=== PATIENT | male | born 1970 | race Caucasian/White ===

== ENCOUNTER 2024-06-03 11:26 | Inpatient (IN) | payer BC, SELFPAY ==
[2024-06-01 17:00] VITALS: BP 143/96
--- NOTE | 2024-06-01 17:47 | ED.GENMED ---
History of Present Illness
General
Chief Complaint: Heart Rate Problem
Source: patient
Exam Limitations: none
Time Seen by Provider: 06/01/24 17:20
Nursing documentation reviewed up to this point in time: agreed with
History of Present Illness
History of Present Illness:
53-year-old male with a history of mitral valve prolapse followed by Dr. Chang who has a history of having episodes of palpitations usually felt as fast heart rate but only lasting several hours presents for symptoms of either fast or slow heart
rate over the last 3 days. It is very unusual for his symptoms to be going on this long. At times his Apple Watch has alerted him to a heart rate of 180 which he says he does not believe and it has been also as low as 40s. His last echo was about
a year ago and he is due for a new 1 coming up. His treatment plan is to avoid triggers for his palpitations is much as he can but he will ultimately require mitral valve replacement
Patient says usually his episodes are triggered either by a full meal, drinking alcohol, excess caffeine etc. but this time he cannot think of any triggers. He has not had any chest pain but has felt a little short of breath at times. He shortness
of breath does get a little bit worse with walking. He says he overall feels fatigued. He says he just does not feel himself. He has not had any leg edema, fever, chills, cough, vomiting, syncope, lightheadedness. There is no PE risk factors.
Patient did not reach out to his cover cutter prior to coming
Past History
Past History
ED Past Medical History: Other (mvp)
Social History
Tobacco: Non-smoker
Alcohol: Occasional
Drug: None
Personal:
Living: with family
Review of Systems
Review of Systems
Allergies reviewed?: Yes
All Other Systems: Not applicable
Phy Exam
Physical Exam
Physical Exam:
GENERAL: Alert , in no apparent distress
EYE: pupils equal and reactive
NECK: Supple
ENT: o/p clr, mmm.
CARDIAC: Tachycardic in the low 100s, it does trend down to the 90s, 2 out of 6 murmur in the left sixth intercostal space
LUNGS: Clear breath sounds bilaterally, no acute respiratory distress, no wheezes/rales/rhonchi, no rales
ABDOMEN: Soft, without focal tenderness, no r/g, no cvat, normal bowel sounds
NEUROLOGICAL: Alert and oriented, no focal neuro deficits
SKIN: Warm and dry, skin intact.
MUSCULOSKELETAL: No edema, well perfused. neg juan j's sign
PSYCH: Normal and appropriate interaction.
Course
Orders/Labs/Results
Orders:
Orders
06/01/24 16:56
EKG [Electrocardiogram (*1)] Urgent
Reason for Study: Palpitations
EKG- Treatment ONCE
06/01/24 17:42
CR Chest - 2 Views Urgent
Comment:
Reason For Exam: mvp, tachycardia, sob
06/01/24 17:55
Complete Blood Count/With Diff Urgent
Comprehensive Metabolic Panel Urgent
Magnesium Urgent
NT-proBNP Urgent
TSH Reflex To Free T4 Urgent
Troponin I Urgent
06/01/24 19:12
Furosemide [Lasix] 40 mg IV NOW STA
06/01/24 19:23
Admit/Transfer Patient As Directed
Co-Sign Provider:
Level of Care: Observation services
Assign to:: Telemetry
Physician / Group: Karie
Diagnosis: palpitation
Reason for Telemetry: Subacute Heart Failure
Date to Stop Telemetry: 06/03/24
Time to Stop Telemetry: 11:00
06/01/24 19:39
Code Status As Directed
Resuscitation Status: Full Code
06/03/24 11:00
DC Protocol for Telemetry ONCE
Abnormal Lab Results
06/01/24
17:55
MCH 31.4 H pg
(27.0-31.0)
MCHC 37.3 H g/dL
(33.0-37.0)
MPV 10.9 H fL
(7.4-10.4)
Absolute Neuts (auto) 7.6 H 10^3/uL
(1.4-6.5)
Absolute Monos (auto) 0.7 H 10^3/uL
(0.1-0.6)
Lymphocytes % 18.5 L %
(20.5-51.1)
Total Bilirubin 2.6 H mg/dl
(0.2-1.3)
06/01/24 17:55
06/01/24 17:55
Vital Signs
Initial and Last Documented VS:
Initial Vital Signs
Temp Pulse Resp BP Pulse Ox
97.5 F 106 18 143/96 100
06/01/24 17:00 06/01/24 17:00 06/01/24 17:00 06/01/24 17:00 06/01/24 17:00
Last Documented Vital Signs
Temp Pulse Resp BP Pulse Ox
97.5 F 86 18 143/96 100
06/01/24 17:00 06/01/24 19:23 06/01/24 17:00 06/01/24 17:00 06/01/24 17:00
MDM/Problems Addressed
MDM/Problems Addressed:
richard noe 53 y/o M MVP followed by ganga; palpitations, hr 110s-120s x 3 days, fatigue, exertional dyspnea;
pt had no significant findings for CHF on physical exam but bnp 3300; trop neg, ekg sinus tach, no cp, cxr indep reviewed and neg
daniel consulted, rec lasix 40 iv daily and echo
*Critical Care Note
Total Time (30-74mins, 75-104mins- exclusive of procedures): Not Applicable
ED Attending Note
-
Portions of this chart may have been created with voice recognition software.� Occasional wrong word or��sound alike� substitutions may have occurred due to the inherent limitations of voice recognition software.
Discharge Plan
Departure
Patient Disposition: Admit
Date of Disposition: 06/01/24
Time of Disposition: 19:11
Admit to: Telemetry
Presentation/result/management discussed w/ accepting MD/DO: Hospitalist
Condition: Fair
Covid-19: Not Applicable
Discharge Problem:
MVP (mitral valve prolapse), Tachycardia, CHF (congestive heart failure)
Prescriptions:
No Action
aspirin 81 mg Tablet,Delayed Release (Dr/Ec)
81 mg PO HS
Pepcid Complete 10-800-165 mg Tablet,Chewable
1 tab PO BID
Refresh Optive 0.5-0.9 % Drops
1 drp BOTH EYES BID
Referrals:
Ayde Vogt MD [Family Provider] -
Interventions
Interventions:
*Risk Screen - Suicide Last Done: 06/01/24 18:00
*General Assessment Last Done: 06/01/24 18:00
*Neglect/Abuse Screening Last Done: 06/01/24 18:00
ED- Cardiac Assessment Last Done: 06/01/24 18:00
ED- Pulmonary Assessment Last Done: 06/01/24 18:00
Discharge Date and Time
Print Language: INDIAN
[2024-06-01 18:01] LABS: % Basophils 0.7 % (0-2); % Eosinophils 0.6 % (0-6); % Immature Granulocytes 0.3 % (0-0.5); % Lymphocytes 18.5 % (20.5-51.1); % Monocytes 6.5 % (1.7-9.3); % Neutrophils 73.4 % (42.2-75.2); Absolute Basophils 0.1 10^3/uL (0-0.2); Absolute Eosinophils 0.1 10^3/uL (0-0.7); Absolute Lymphocytes 1.9 10^3/uL (1.2-3.4); Absolute Monocytes 0.7 10^3/uL (0.1-0.6); Absolute Neutrophils 7.6 10^3/uL (1.4-6.5); Hematocrit 41.6 % (39.0-52.0); Hemoglobin 15.5 g/dL (13.0-18.0); Mean Corp Hgb Conc. 37.3 g/dL (33.0-37.0); Mean Corpuscular Hgb 31.4 pg (27.0-31.0); Mean Corpuscular Volume 84.2 fL (80.0-94.0); Mean Platelet Volume 10.9 fL (7.4-10.4); Nucleated Red Blood Cells % 0 % (-); Platelet Count 245 10^3/uL (130-400); Red Blood Cell Count 4.94 10^6/uL (4.70-6.10); Red Cell Dist. Width 12.1 % (11.5-14.5); White Blood Cell Count 10.3 10^3/uL (4.8-10.8)
[2024-06-01 18:24] LABS: ALT (SGPT) 25 U/L (0-50); AST (SGOT) 31 U/L (17-59); Albumin 4.4 g/dl (3.5-5.0); Alkaline Phosphatase 56 U/L (38-126); Blood Urea Nitrogen 14 mg/dl (9-20); Calcium 9.5 mg/dl (8.4-10.2); Carbon Dioxide 25 mmol/L (22-30); Chloride 106 mmol/L (98-107); Glucose 89 mg/dl (70-99); Magnesium 2.2 mg/dl (1.6-2.3); Potassium 4.1 mmol/L (3.5-5.1); Sodium 138 mmol/L (135-145); Total Bilirubin 2.6 mg/dl (0.2-1.3); Total Protein 6.5 g/dl (6.3-8.2); eGFR > 60.00
[2024-06-01 18:26] LABS: Troponin I < 0.012 ng/ml
[2024-06-01 18:54] LABS: TSH Reflex To Free T4 1.43 uIU/ml (0.47-4.68)
[2024-06-01 19:02] LABS: NT-proBNP 3350 pg/ml
[2024-06-01] MEDS: LASIX 40 MG IV (19:23)
--- NOTE | 2024-06-01 19:42 | HPS.HSE ---
Family Physician
-
Family Physician: Ayde Vogt
Chief Complaint
-
53-year-old male with history of moderate to severe mitral regurgitation, presented to the hospital complaining of intermittent palpitations since without enticing or triggering factor, he has an Apple Watch and his heart rate ranging from
180-40 and even occasionally red A-fib according to the patient while he spoke to his cardiology did not think this is in A-fib.
Admits feeling tired and fatigue and occasional short of breath especially with palpitation on exertion, no dizziness or syncope, no chest pain or cough or congestion or any weakness or numbness in extremities no bleeding event or change in stool or
urine color, denies any other symptoms.
Denies any lower extremity edema gaining weight, currently asymptomatic.
In the ER BNP is more than 3300, and his TSH is 1.43. ER physician they spoke to the vending machine servicer Dr. Mckeon, recommended daily IV Lasix and echo in the morning.
Patient awake, alert and oriented x 3 hold appropriate conversation accompanied by the at the bedside.
History of Present Illness
Past medical history Reviewed:
Moderate to severe mitral regurgitation
Asthma
GERD
Social history: lives with independently, denies smoking and drinks 2-3 drinks couple nights in the weekend, denies any drug.
Family history: Reviewed and noncontributory
Medical History
Past Medical History
Past Medical History: Reports Other
Past Surgical History: Reports Other
Social History
Unable to obtain full social history at this time due to: Other
Family History
Family History: Other
Allergies / Home Medications
Allergies reflects when Allergies were last updated in [facility].
Home Medications with original date entered in [facility]
Allergy/Medication List:
Allergies
Allergy/AdvReac Type Severity Reaction Status Date / Time
epinephrine Allergy Tachycardia, Verified 09/07/21 10:24
lightheaded
lidocaine Allergy Residual Verified 09/07/21 10:24
numbess,
tingling
Home Medications
aspirin 81 mg tablet,delayed release 81 mg PO HS 06/01/24
carboxymethylcellulose 0.5 %-glycerin 0.9 % eye drops (Refresh Optive) 1 drp BOTH EYES BID 06/01/24
famotidine-Ca carb-mag hydrox 10 mg-800 mg-165 mg chewable tablet (Pepcid Complete) 1 tab PO BID 06/01/24
Review of Systems
-
A 12 point ROS was completed and negative except as noted: Yes
Physical Exam
Vital Signs
Vital Signs
Temp Pulse Resp BP Pulse Ox
97.5 F 86 18 143/96 100
06/01/24 17:00 06/01/24 19:23 06/01/24 17:00 06/01/24 17:00 06/01/24 17:00
Physical exam:
General: Awake, alert and oriented x3, not in distress and holds appropriate conversation.
HEENT: No active discharge, ecchymosis or bruising, moist lips, tongue and mucous membrane.
Eyes: No discharge or red conjunctiva, no nystagmus, pupils are reactive and equal
Neck:Supple, no JVD no bruit no goiter.
Respiratory: Normal AP contour and diameter, normal chest wall movement, normal respiratory effort, no respiratory distress,
Lungs: Good air entry bilaterally, no wheezing or rhonchi, no rales or crackles
Heart: S1, S2 regular, normal rate, no added sound.
Gastrointestinal: Positive bowel sounds, soft, nontender, no guarding or rigidity or organomegaly
Musculoskeletal: , no chest wall abnormality or tenderness. All joints and extremities have good range of motion, no muscle tenderness or any joint swelling or tenderness.
Extremities: No pitting edema, good peripheral pulses, good range of motion
Skin: Warm and dry, no ulceration, normal color.
Neurological: Awake, alert and oriented x3, no facial droop, speech clear and comprehensive, good muscle tone
Psychiatric: Normal mood, normal thought and judgment, normal affect,
Physical Exam
General: Other
Laboratory Results
-
06/01/24 17:55
06/01/24 17:55
Laboratory Results
Total Bilirubin 2.6 mg/dl (0.2-1.3) H 06/01/24 17:55
AST 31 U/L (17-59) 06/01/24 17:55
ALT 25 U/L (0-50) 06/01/24 17:55
Alkaline Phosphatase 56 U/L (38-126) 06/01/24 17:55
Troponin I < 0.012 ng/ml 06/01/24 17:55
Chest x-ray: No acute cardiopulmonary abnormality
EKG showed sinus tachycardia rate around 112, IA 134, QTc 466 otherwise no acute abnormalities.
Data Reviewed
-
Diagnostic Radiology: Image Personally Visualized and interpreted, Discussed with Physician, Discussed with Patient and Discussed with Family
Medical Tests (Nuc Med, Echo, EKG etc): Image Personally Visualized and interpreted, Discussed with Physician, Discussed with Nurse and Discussed with Family
Lab Data: Labs Reviewed by me, Discussed with Physician, Discussed with Patient and Discussed with Family
Old Records: Reviewed
Impression/Plan
-
IMPRESSION:
53-year-old male with history of moderate to severe mitral regurgitation, presented to the hospital complaining of the intermittent palpitations since with no relieving aggravating factor, currently symptomatic initially heart rate was in
sinus tachycardia now on the monitor was in the 90s and in sinus rhythm.
Palpitation, likely secondary to mitral valve prolapse while other causes may need to be considered
Concern for mitral valve induced CHF
Shortness of breath, with palpitation on exertion concern for CHF and
GERD
PLAN:
Cardiac monitoring
Cardiology been contacted and recommended IV Lasix daily and first dose was given get an echo tomorrow
TSH is normal
Monitor vital sign
Recheck lab and monitor electrolyte renal function
Potassium 4.1 and magnesium 2.2 continue to monitor
Follow troponin
Continue aspirin
He is on famotidine
All discussed with the patient and his and expressed understanding
Discussed with the ER physician and physician school office assistant
CODE STATUS full code
DVT prophylaxis is Lovenox
[2024-06-01 20:01] VITALS: BP 122/95
[2024-06-01 21:28] VITALS: BMI 27.3
[2024-06-01 21:33] VITALS: BP 122/80; BMI 27.3
[2024-06-01] MEDS: ASPIR LOW (ENTERIC COATED) 81 MG PO (22:04)
--- NOTE | 2024-06-01 22:25 | PTCARENOTE ---
Receive pt from ER. Pt alert oriented X3, calm and in no distress. The pt walked to his bed with no issues. Pt denies SOB, chest pain , or palpitations. Pt oriented to the room, call dumont within reach. Pt is on NSR on telemonitor. HR=96, RR=18,
OU=166/80, T=98.2, SpO2=98% on RA. HF pocket given to the pt. Pt advised to report any chest pain, or palpitations, or SOB. Will continue to monitor the pt.
[2024-06-01 23:16] LABS: Troponin I < 0.012 ng/ml
[2024-06-01 23:31] VITALS: BP 110/78
[2024-06-02 03:16] VITALS: BP 103/71
[2024-06-02 04:49] VITALS: BMI 27.2
[2024-06-02 05:14] LABS: Blood Urea Nitrogen 14 mg/dl (9-20); Calcium 9.4 mg/dl (8.4-10.2); Carbon Dioxide 28 mmol/L (22-30); Chloride 105 mmol/L (98-107); Estimated Creatinine Clearance 82 ml/min; Glucose 90 mg/dl (70-99); Magnesium 2.3 mg/dl (1.6-2.3); Potassium 4.1 mmol/L (3.5-5.1); Sodium 141 mmol/L (135-145); Troponin I < 0.012 ng/ml; eGFR > 60.00
[2024-06-02 07:20] VITALS: BP 105/77
[2024-06-02] MEDS: PEPCID 20 MG PO ×2 (08:16→20:48)
[2024-06-02] MEDS: LASIX 40 MG IV (08:16)
--- NOTE | 2024-06-02 08:28 | CON.CAR ---
Addendum entered and electronically signed by Garrett Leblanc DO 06/02/24 13:25:
I saw and examined the patient.
The Aboriginal Education Teacher's note was reviewed and I agree with the note.
Comment:
Plan:
Continue IV Lasix diuresis.
Check 2D echocardiogram to evaluate for change in mitral regurgitation. We also discussed GEORGINA to better evaluate his known moderate to severe mitral regurgitation.
Review of his Apple Watch shows evidence of tachycardia with ectopy including PACs. We discussed checking a monitor after discharge. Some of his ectopy may be secondary to his worsening heart failure.
Discussed that if his mitral regurgitation is worsened, that he may require structural treatment to his mitral valve. Follow up regarding his MR with Dr Chang as outpt as well.
Discussed with the patient and his at bedside.
HPI: Pt came to [facility] yesterday with SOB and palpitations and was admitted with acute HF. Patient says that this past night he noticed his HR was fast, he could feel his heart beating faster, but not necessarily irregularly and then he
noticed his Apple watch was reporting his HR in the 160s and then down in the 40s. He reports that when the Apple watch read 160s he could feel his heart racing and that when it read HR in the 40s he felt tired. He was also feeling SOB described as
HANNAH, but also SOB when laying down to sleep at night, but no PND. He denies LE edema or bloating. No weight gain or rings fitting tighter. He has no h/o HF and does not take a diuretic. He has a h/o MR with last GEORGINA being in 08/2021. His last TTE
was 05/25/23 and he is scheduled for another echo 08/2024. He has otherwise felt well. No chest pain. He had ongoing symptoms so he came to [facility] yesterday and his pro-BNP was 3350 and he was given Lasix 40 mg IV with increased urine output and he also
reports symptomatic improvement, he had no orthopnea last night and reports the best night of sleep in a week.
Original Note:
Consultation
Consultation Request
Date/Time Consultation Requested: 06/01/24 at 2123
Date/Time Consultation Performed: 06/02/24 at 0830
Requesting Provider: Dr. Tavera
Performing Provider: Dr. Leblanc
Reason for Consultation: SOB, palpitations, MR
Medical History
-
History of Present Illness:
Patient came to [facility] yesterday with SOB and palpitations and was admitted with acute HF. Patient says that this past night he noticed his HR was fast, he could feel his heart beating faster, but not necessarily irregularly and then he
noticed his Apple watch was reporting his HR in the 160s and then down in the 40s. He reports that when the Apple watch read 160s he could feel his heart racing and that when it read HR in the 40s he felt tired. He was also feeling SOB described as
HANNAH, but also SOB when laying down to sleep at night, but no PND. He denies LE edema or bloating. No weight gain or rings fitting tighter. He has no h/o HF and does not take a diuretic. He has a h/o MR with last GEORGINA being in 08/2021. His last TTE
was 05/25/23 and he is scheduled for another echo 08/2024. He has otherwise felt well. No chest pain. He had ongoing symptoms so he came to [facility] yesterday and his pro-BNP was 3350 and he was given Lasix 40 mg IV with increased urine output and he also
reports symptomatic improvement, he had no orthopnea last night and reports the best night of sleep in a week.
PMH:
Moderate to severe MR with bileaflet mitral valve prolapse by echo 05/25/23
Past Medical History
Past Medical History: Other (in HPI)
Past Surgical History: Cholecystectomy, Orthopedic and Tonsilectomy
Social History
Tobacco: Former Smoker
Alcohol: Occasional (1-2 drinks two to three times a week)
Drug: None
Personal:
Living: With Family
Family History
Family History: Cancer
Allergies / Home Medications
Allergy/AdvReac Type Severity Reaction Status Date / Time
epinephrine Allergy Tachycardia, Verified 09/07/21 10:24
lightheaded
lidocaine Allergy Residual Verified 09/07/21 10:24
numbess,
tingling
�Medication �Instructions �Recorded �Confirmed �Type
aspirin 81 mg tablet,delayed 81 mg PO HS 06/01/24 06/01/24 History
release
carboxymethylcellulose 0.5 1 drp BOTH EYES BID 06/01/24 06/01/24 History
%-glycerin 0.9 % eye drops
(Refresh Optive)
famotidine-Ca carb-mag hydrox 10 1 tab PO BID 06/01/24 06/01/24 History
mg-800 mg-165 mg chewable tablet
(Pepcid Complete)
Review of Systems
-
History Source: Patient
All other systems: Negative unless noted
Physical Exam
Vital Signs
Temp Pulse Resp BP Pulse Ox
98.2 F 84 18 105/77 97
06/02/24 07:20 06/02/24 07:20 06/02/24 07:20 06/02/24 07:20 06/02/24 07:20
GEN: NAD, AAOx3
HEENT: EOMI, MMM, wearing glasses
LUNGS: CTA B/L without wheeze or rales
CV: Reg, S1/S2, 2/6 syst USB
ABD: soft, BS+, NT, ND
EXT: No clubbing, cyanosis, lesions or edema B/L
NEURO: Gross non-focal
SKIN: Warm, dry and pink. No rash
Lab Results
06/01/24 17:55
06/02/24 04:31
Troponin I < 0.012 ng/ml 06/02/24 04:31
Lqo-Q-Wckxxafkcsw Pept 3350 pg/ml 06/01/24 17:55
Impression / Plan
-
PCP: Dr. Vogt
Cardiology: Dr. Chang
Impression:
Acute HFpEF
Moderate to severe MR with bileaflet mitral valve prolapse by echo 05/25/23
Palpitations
PACs and sinus tachycardia
GEORGINA 09/07/21: Hyperdynamic LV systolic function EF 65 to 70%, normal regional wall motion, mildly dilated LA, mildly thickened mitral valve leaflets, prolapse of the anterior and posterior mitral valve leaflets present, moderate to severe MR,
significant prolapse of P2, P3 and A2 with mild pulmonary vein flow reversal, E wave velocity 78 cm/S, PISA ERO 0.3 cm/sq with regurgitant volume 35 mL
Echo 10/04/22: EF 50-55%, , mild conc LVH, prolapse of the posterior mitral leaflet was present, mod to sev MR, no MS, compared to the previous GEORIGNA Aug 2021, there is no significant change.
Echo 05/25/23: EF 65%, normal RV size and function, bileaflet mitral valve prolapse, moderate to severe MR, vena contracta 0.6 cm, PISA calculated ERO 0.2 cm with regurgitant volume 19 mL, peak E wave velocity 90 cm/sq, there was systolic pulmonary
vein flow reversal, no MS, trace aortic regurgitation, trace TR with PAP 20-25 mmHg
Echo 06/02/24: Study pending
Plan:
-Patient came to [facility] yesterday with SOB and palpitations and was admitted with acute HF. Patient says that this past night he noticed his HR was fast, he could feel his heart beating faster, but not necessarily irregularly and then he
noticed his Apple watch was reporting his HR in the 160s and then down in the 40s. He reports that when the Apple watch read 160s he could feel his heart racing and that when it read HR in the 40s he felt tired. He was also feeling SOB described as
HANNAH, but also SOB when laying down to sleep at night, but no PND. He denies LE edema or bloating. No weight gain or rings fitting tighter. He has no h/o HF and does not take a diuretic. He has a h/o MR with last GEORGINA being in 08/2021. His last TTE
was 05/25/23 and he is scheduled for another echo 08/2024. He has otherwise felt well. No chest pain. He had ongoing symptoms so he came [facility] and his pro-BNP was 3350 and he was given Lasix 40 mg IV with increased urine output and he also
reports symptomatic improvement, he had no orthopnea last night and reports the best night of sleep in a week.
-Weight is only down 1 lb overnight, but patient reports symptomatic improvement with initial Lasix 40 mg IV daily diuresis. Patient was not taking a diuretic prior to admission.
-Check TTE and pending results could consider an inpatient GEORGINA to re-evaluate MR
-Patient with h/o MR and MVP. Most recent GEORGINA and TTE outlined above.
-EF previously preserved
-Labs reviewed by me and potassium 4.1 with magnesium 2.3.
-Symptomatic palpitations have improved with diuresis. Tele and ECG reviewed by me show sinus tachycardia/SR with PACs. Also given opportunity to review patient's rhythm strips saved on his iphone from his [employer] watch and these look like sinus
tachycardia with PACs.
-Troponin undetectable. He was already taking an aspirin 81 mg daily prior to admission
[2024-06-02 10:52] VITALS: BP 118/81
--- NOTE | 2024-06-02 12:31 | W.PN.HOSP.TC ---
Today's Communication/Plan
-
ECHO
IV lasix
cards recs
monitor on tele
Assessment / Plan
Assessment / Plan
53-year-old male with history of moderate to severe mitral regurgitation, presented to the hospital complaining of the intermittent palpitations since with no relieving aggravating factor, currently symptomatic initially heart rate was in
sinus tachycardia now on the monitor was in the 90s and in sinus rhythm.
Palpitation, likely secondary to mitral valve prolapse
Acute HFpEF
Shortness of breath, with palpitation on exertion concern for CHF
Cardiac monitoring-no severe tachycardia noted
40mg IV lasix
ECHO pending
TSH is normal
Monitor vital sign
trend cr.
Follow troponin-undetectable
GDMT pending ECHO
cards recs
Continue aspirin
All discussed with the patient and his at bedside
CODE STATUS full code
DVT prophylaxis is Lovenox
Anticipated Discharge: > 48 hours
Subjective/Interval History
-
Date of Service: June 02, 2024
Denies any further palpitations
No events noted on telemetry
passing increasing amount of urine
Objective Data
-
Labs:
Laboratory Results
06/02/24
04:31
Sodium 141
Potassium 4.1
Chloride 105
Carbon Dioxide 28
BUN 14
Creatinine 1.1
Glucose 90
Calcium 9.4
Vital Signs:
Vital Signs
Temp Pulse Resp BP Pulse Ox
98.8 F 93 18 118/81 95
06/02/24 10:52 06/02/24 10:52 06/02/24 10:52 06/02/24 10:52 06/02/24 10:52
I&O
06/01/24 06/02/24 06/03/24
06:59 06:59 06:59
Intake Total 480 / 480
Output Total 800 / 800
Balance -320 / -320
[2024-06-02 15:36] VITALS: BP 127/79
[2024-06-02] MEDS: LOVENOX 40 MG SC (17:22)
[2024-06-02 19:20] VITALS: BP 110/79
[2024-06-02] MEDS: ASPIR LOW (ENTERIC COATED) 81 MG PO (20:48)
[2024-06-02 23:08] VITALS: BP 107/74
[2024-06-03 03:06] VITALS: BMI 27.3
[2024-06-03 03:07] VITALS: BP 106/76
[2024-06-03 05:42] LABS: Blood Urea Nitrogen 16 mg/dl (9-20); Calcium 9.5 mg/dl (8.4-10.2); Carbon Dioxide 26 mmol/L (22-30); Chloride 103 mmol/L (98-107); Estimated Creatinine Clearance 82 ml/min; Glucose 87 mg/dl (70-99); Potassium 4.2 mmol/L (3.5-5.1); Sodium 139 mmol/L (135-145); eGFR > 60.00
[2024-06-03 07:15] VITALS: BP 104/73
[2024-06-03] MEDS: LASIX 40 MG IV (09:21)
[2024-06-03] MEDS: PEPCID 20 MG PO (09:21)
[2024-06-03 09:27] VITALS: BMI 27.1
--- NOTE | 2024-06-03 11:26 | W.PN.HOSP.TC ---
Today's Communication/Plan
-
Plan for GEORGINA
IV Lasix
Cardiology recs
Assessment / Plan
Assessment / Plan
53-year-old male with history of moderate to severe mitral regurgitation, presented to the hospital complaining of the intermittent palpitations since with no relieving aggravating factor, currently symptomatic initially heart rate was in
sinus tachycardia now on the monitor was in the 90s and in sinus rhythm.
Palpitation, likely secondary to mitral valve prolapse
Acute HFpEF
Shortness of breath, with palpitation on exertion concern for CHF
Cardiac monitoring-no severe tachycardia noted
40mg IV lasix
ECHO with normal left ventricular size. EF of 60 to 65%. Normal diastolic function. Mild leaflet mitral valve prolapse. Thickened mitral valve leaflet. Moderate to severe mitral regurgitation. No mitral stenosis. Compared to echo 06/09 no
significant change.
TSH is normal
Monitor vital sign
trend cr.
Follow troponin-undetectable
Plan for GEORGINA today.
cards recs
Continue aspirin
CODE STATUS full code
DVT prophylaxis is Lovenox
Anticipated Discharge: Within 24 hours
Subjective/Interval History
-
Date of Service: June 03, 2024
States feeling tired
Objective Data
-
Labs:
Laboratory Results
06/03/24
04:25
Sodium 139
Potassium 4.2
Chloride 103
Carbon Dioxide 26
BUN 16
Creatinine 1.1
Glucose 87
Calcium 9.5
Vital Signs:
Vital Signs
Temp Pulse Resp BP Pulse Ox
97.3 F 86 16 104/73 97
06/03/24 07:15 06/03/24 07:15 06/03/24 07:15 06/03/24 07:15 06/03/24 08:00
I&O
06/02/24 06/03/24 06/04/24
06:59 06:59 06:59
Intake Total 480 / 480 1560 / 1560
Output Total 800 / 800 2520 / 2520
Balance -320 / -320 -960 / -960
Physical Exam
-
General: Well Developed and No Apparent Distress
HEENT: Normocephalic, Atraumatic and Moist Mucous Membranes
Respiratory: Clear to Auscultation
Cardiac: Regular Rhythm, S1/S2 and Murmur; Negative Rub or Gallop
GI: Soft, Nontender, Nondistended and Normal Bowel Sounds; Negative Organomegaly
Rectal: Deferred by Provider
Musculoskeletal: No Clubbing, No Cyanosis and No Edema
Skin: Negative Rash
Neuro: Awake, AO x 3, No Motor Deficits and Nonfocal/Grossly Intact
Psych: Calm
--- NOTE | 2024-06-03 11:51 | W.PN.UPDATE ---
Update Note
Progress Note Update
I met with Mr. Barrow with his spouse at the bedside. We discussed his GEORGINA findings as well as his symptoms. Will organize an office consultation for June 18 at 10:30am to discuss [facility] [employer] in more detail.
[2024-06-03 12:04] VITALS: BP 104/75
--- NOTE | 2024-06-03 12:04 | W.PN.CARDCBS ---
Today's Communication / Plan
-
GEORGINA this morning with likely severe MR
Appreciate CT surgery consult
Okay to transition to p.o. Lasix, would discharge on 20 mg daily
We will arrange outpatient cardiology follow-up
Impression / Plan
-
PCP: Dr. Vogt
Cardiology: Dr. Chang
Impression:
Acute HFpEF
Moderate to severe MR with bileaflet mitral valve prolapse by echo 05/25/23
Palpitations
PACs and sinus tachycardia
GEORGINA 09/07/21: Hyperdynamic LV systolic function EF 65 to 70%, normal regional wall motion, mildly dilated LA, mildly thickened mitral valve leaflets, prolapse of the anterior and posterior mitral valve leaflets present, moderate to severe MR,
significant prolapse of P2, P3 and A2 with mild pulmonary vein flow reversal, E wave velocity 78 cm/S, PISA ERO 0.3 cm/sq with regurgitant volume 35 mL
Echo 10/04/22: EF 50-55%, , mild conc LVH, prolapse of the posterior mitral leaflet was present, mod to sev MR, no MS, compared to the previous GEORGINA Aug 2021, there is no significant change.
Echo 05/25/23: EF 65%, normal RV size and function, bileaflet mitral valve prolapse, moderate to severe MR, vena contracta 0.6 cm, PISA calculated ERO 0.2 cm with regurgitant volume 19 mL, peak E wave velocity 90 cm/sq, there was systolic pulmonary
vein flow reversal, no MS, trace aortic regurgitation, trace TR with PAP 20-25 mmHg
Patient came to [facility] with SOB and palpitations and was admitted with acute HF. Patient says that this past night he noticed his HR was fast, he could feel his heart beating faster, but not necessarily irregularly and then he noticed his
Apple watch was reporting his HR in the 160s and then down in the 40s. He reports that when the Apple watch read 160s he could feel his heart racing and that when it read HR in the 40s he felt tired. He was also feeling SOB described as HANNAH, but
also SOB when laying down to sleep at night, but no PND. He denies LE edema or bloating. No weight gain or rings fitting tighter. He has no h/o HF and does not take a diuretic. He has a h/o MR with last GEORGINA being in 08/2021. His last TTE was 05/25/23
and he is scheduled for another echo 08/2024. He has otherwise felt well. No chest pain. He had ongoing symptoms so he came to [facility] yesterday and his pro-BNP was 3350 and he was given Lasix 40 mg IV with increased urine output and he also reports
symptomatic improvement
Plan:
Received IV diuresis for acute heart failure, renal function has remained stable, not overtly volume overloaded on exam
Ok to transition to PO lasix, would discharge on 20mg lasix daily
GEORGINA this AM with likely severe MR
CT surgery follow up arranged to discuss MV repair
Tele reviewed which shows sinus rhythm with PACs which is the likely cause of his palpitations
We will arrange outpatient follow up
Progress Note - Hydro Technician
Subjective
Date of Service: June 03, 2024
NAOE. Underwent GEORGINA this AM to reassess MR.
Objective
Labs:
06/01/24 17:55
06/03/24 04:25
Labs
Hgb 15.5 g/dL (13.0-18.0) 06/01/24 17:55
Hct 41.6 % (39.0-52.0) 06/01/24 17:55
Plt Count 245 10^3/uL (130-400) 06/01/24 17:55
Sodium 139 mmol/L (135-145) 06/03/24 04:25
Potassium 4.2 mmol/L (3.5-5.1) 06/03/24 04:25
BUN 16 mg/dl (9-20) 06/03/24 04:25
Creatinine 1.1 mg/dL (0.7-1.3) 06/03/24 04:25
Glucose 87 mg/dl (70-99) 06/03/24 04:25
Troponins
06/01/24 06/01/24 06/02/24
17:55 22:47 04:31
Troponin I < 0.012 < 0.012 < 0.012
Vital Signs and I&O:
Vital Signs
Temp Pulse Resp BP Pulse Ox
97.3 F 86 16 104/73 97
06/03/24 07:15 06/03/24 07:15 06/03/24 07:15 06/03/24 07:15 06/03/24 08:00
Vital Signs
Temp Pulse Resp BP Pulse Ox
97.3 F 86 16 104/73 97
06/03/24 07:15 06/03/24 07:15 06/03/24 07:15 06/03/24 07:15 06/03/24 08:00
Intake & Output
06/01/24 06/02/24 06/03/24 06/04/24
06:59 06:59 06:59 06:59
Intake Total 480 / 480 1560 / 1560
Output Total 800 / 800 2520 / 2520
Balance -320 / -320 -960 / -960
Physical Exam
Physical Exam
Gen: NAD, AAOx3
HEENT: NC/AT, sclera anicteric
Neck: No JVD
CV: RRR, NL s1/s2
Lungs: CTAB
Abd: S/ND
Ext: No LE edema
Skin: Warm, dry
Neuro: Non-focal
--- NOTE | 2024-06-03 13:32 | CM ---
Alert awake oriented patient who lives with his S[place] who lives in a 2 story home with 2 step to enter and 14 steps to bed and bathroom. He is independent in driving and in all activities of daily living.He was offered VN he declined
need.Pt was informed he was changed form observation to inpatient status this am.His will drive him home.
No VN hx / No SNF history
Pharmacy [facility]
PCP DR Ayde Vogt
PLAN Home Declined VN
[2024-06-03 13:50] VITALS: BP 111/73
--- NOTE | 2024-06-03 15:47 | PTCARENOTE ---
Pts called post discharge stating pt has a large bruise from lovenox shot given last night. and patient concerned. Pt said it is not painful but slightly hard to touch, explained to patient that we do see bruising/bleeding from lovenox
injections, Instructed pt to keep an eye on site and if worsening appearance, or pain to give PCP office a call, pt will be following up with them in one week.
--- NOTE | 2024-06-04 13:59 | W.HF.CON ---
Heart Failure
- LV Function
Left ventricular function study result: LV Ejection fraction >40%
Ejection Fraction Percentage: 55-60
- ARNI
Patient already on ARNI: No
Heart Failure ARNI Not Indicated: LV Ejection Fraction >/= 40%
- ACEI/ARB
Patient already on ACEI/ARB: No
Heart Failure ACEI/ARB Not Indicated: LV Ejection Fraction > 40%
- Beta Huang
Patient already on Evidence Based Beta Huang: No
Heart Failure Evidence Based Beta Huang Not Indicated: LV Ejection Fraction > 40%
- Mineralocorticord Receptor Antagonist
Patient already on MRA: No
Heart Failure MRA Not Indicated: LV Ejection Fraction > 40%
- SGLT-2 Inhibitor
Patient already on SGLT-2 Inhibitor: No
Heart Failure SGLT-2 Inhibitor Not Indicated: LV Ejection Fraction >40%
- NYHA CHF Classification
NYHA CHF Classification Level: Class III - Symptoms w/ min exertion, interferes w/ nml daily activity (severe MR)
- ACC/AHA Stage
ACC/AHA Stage: Stage C: Symptomatic Heart Failure
== END 2024-06-03 14:40 | disposition home or self-care (01) | DRG 306 ==
LOC: 4 EAST ACU 11:26
PROVIDERS: Internal Medicine Cardiovascular Disease; Physician Assistant; ADMITTING PHYSICIAN Internal Medicine; ATTENDING PHYSICIAN Hospitalist; EMERGENCY PHYSICIAN Student in an Organized Health Care Education/Training Program; FAMILY PHYSICIAN Internal Medicine; OTHER PHYSICIAN Nuclear Medicine Nuclear Cardiology
PROC: B24BZZ4 Ultrasonography of Heart with Aorta, Transesophageal (ICD-10-PCS; 2024-06-03)
DX: I34.1 Nonrheumatic mitral (valve) prolapse (principal); I50.31 Acute diastolic (congestive) heart failure; I34.0 Nonrheumatic mitral (valve) insufficiency; J45.909 Unspecified asthma, uncomplicated; K21.9 Gastro-esophageal reflux disease without esophagitis; I49.1 Atrial premature depolarization; Z88.8 Allergy status to other drugs, medicaments and biological substances; Z88.4 Allergy status to anesthetic agent; Z79.82 Long term (current) use of aspirin; Z87.891 Personal history of nicotine dependence
CPT/HCPCS: 71046; 80048; 80053; 83735; 83880; 84443; 84484; 85025; 93005; 93306; 93312; 93320; 93325; 96374; 99285

== ENCOUNTER → 2024-06-13 08:58 | Outpatient (REF) | payer BC, SELFPAY ==
[2024-06-13 10:03] LABS: Blood Urea Nitrogen 20 mg/dl (9-20); Carbon Dioxide 26 mmol/L (22-30); Chloride 104 mmol/L (98-107); Glucose 92 mg/dl (70-99); Potassium 4.6 mmol/L (3.5-5.1); Sodium 139 mmol/L (135-145); eGFR > 60.00
== END ==
LOC: REG 08:58
PROVIDERS: ATTENDING PHYSICIAN Nurse Practitioner; FAMILY PHYSICIAN Internal Medicine
DX: R00.2 Palpitations (principal)
CPT/HCPCS: 36415; 80048

== ENCOUNTER 2024-06-27 07:27 | Day surgery (SDC) | payer BC, SELFPAY ==
[2024-06-27] VITALS (13 sets, daily range): BP systolic 92–117; BP diastolic 65–85; BMI 26.4
[2024-06-27] MEDS: NSS 251 ML IV (08:27)
[2024-06-27] MEDS: LOW STRENGTH ASPIRIN 81 MG PO (08:31)
--- NOTE | 2024-06-27 10:31 | ITS.CL.CATH ---
[facility] - Catheterization
Cardiac Catheterization
Procedure Report:
RIGHT AND LEFT HEART STUDY
Date of Procedure: June 27, 2024
Referring: Dr. Valente Chang
PROCEDURES:
1. Right heart catheterization
2. Coronary angiography
INDICATION: Severe mitral regurgitation
ACCESS: Right radial artery and right brachial vein
HEMODYNAMICS : mmHg
RA (m) : 4
RV (s/d) : 22/1
PA (s/d, m) : 23/9, 15
PCWP (m) : 10
AO (s/d, m) : 91/60, 76
Estimated Kateryna Cardiac Output: 5.6 L / min and Cardiac Index: 2.8 L/ min / m-2
CORONARY FINDINGS :
Dominance: Right
LEFT MAIN: Normal
LEFT ANTERIOR DESCENDING: The LAD is a large-caliber vessel originating normally from the left main and running in the anterior interventricular groove. The LAD is widely patent and supplies a single sizable diagonal branch.
CIRCUMFLEX: The circumflex is a large-caliber nondominant vessel giving rise to a small OM1 and terminating in a large OM 2.
RIGHT CORONARY ARTERY: The RCA is a dominant vessel that is widely patent
VENTRICULOGRAPHY: Not done
RADIATION SUMMARY: Fluoro Time (min): 5.2, Dose (mGy): 227, DAP (Gy.cm2) : 20.3
CONCLUSIONS
1. Nonobstructive coronary disease
2. Compensated right ventricular pressure
RECOMMENDATIONS
1. Follow-up with Dr. Forrest as scheduled for mitral valve repair
Copy to: Dr. Valente Chang, Dr. Beto Forrest
== END 2024-06-27 13:30 | disposition home or self-care (01) ==
LOC: CATH 07:27
PROVIDERS: ATTENDING PHYSICIAN Internal Medicine Interventional Cardiology; FAMILY PHYSICIAN Internal Medicine
DX: I25.10 Atherosclerotic heart disease of native coronary artery without angina pectoris (principal); I34.0 Nonrheumatic mitral (valve) insufficiency; K21.9 Gastro-esophageal reflux disease without esophagitis; Z79.82 Long term (current) use of aspirin
CPT/HCPCS: 93456; C1769; C1894; Q9967

== ENCOUNTER → 2024-07-01 08:07 | Outpatient (REF) | payer BC, SELFPAY | LOC: RAD 08:07 | PROVIDERS: ATTENDING PHYSICIAN Thoracic Surgery (Cardiothoracic Vascular Surgery); FAMILY PHYSICIAN Internal Medicine | DX: Z01.818 Encounter for other preprocedural examination (principal); I34.1 Nonrheumatic mitral (valve) prolapse | CPT/HCPCS: 71275; 74174; Q9967 ==

== ENCOUNTER 2024-07-15 04:59 | Inpatient (IN) | payer BC, SELFPAY ==
[2024-06-23 08:50] VITALS: BMI 26.8
[2024-06-23 09:33] LABS: % Eosinophils 1.3 % (0-6); % Immature Granulocytes 0.2 % (0-0.5); % Lymphocytes 20.3 % (20.5-51.1); % Monocytes 6.1 % (1.7-9.3); % Neutrophils 71.1 % (42.2-75.2); Absolute Basophils 0.1 10^3/uL (0-0.2); Absolute Eosinophils 0.1 10^3/uL (0-0.7); Absolute Lymphocytes 1.7 10^3/uL (1.2-3.4); Absolute Monocytes 0.5 10^3/uL (0.1-0.6); Absolute Neutrophils 5.8 10^3/uL (1.4-6.5); Hematocrit 45.8 % (39.0-52.0); Hemoglobin 16.7 g/dL (13.0-18.0); Mean Corp Hgb Conc. 36.5 g/dL (33.0-37.0); Mean Corpuscular Hgb 31.6 pg (27.0-31.0); Mean Corpuscular Volume 86.7 fL (80.0-94.0); Mean Platelet Volume 11.1 fL (7.4-10.4); Nucleated Red Blood Cells % 0 % (-); Platelet Count 271 10^3/uL (130-400); Red Blood Cell Count 5.28 10^6/uL (4.70-6.10); White Blood Cell Count 8.2 10^3/uL (4.8-10.8)
[2024-06-23 10:05] LABS: Urine Albumin Negative (Neg - Trace); Urine Bilirubin Negative (Negative); Urine Character Clear (Clear); Urine Color Yellow; Urine Glucose Negative (Negative); Urine Ketone Negative (Negative); Urine Leukocyte Negative (Negative); Urine Nitrite Negative (Negative); Urine Occult Blood Negative (Negative); Urine Urobilinogen Negative (Neg - 1+)
--- NOTE | 2024-06-23 10:19 | CM ---
Chart reviewed. Met with the patient in PAT. Patient is independent of ADLS, working, lives with his in a 2 STH, 2 ROSI in the front and 1 ROSI through the garage, 0 DME. Reviewed preoperative and postoperative instructions and restrictions,
along with showering guidelines. Gave patient 2 soaps. Patient is agreeable to a home visit by CT Transitional RN. Plan is for the patient to return home with CT Transitional RN.
[2024-06-23 10:35] LABS: INR 1.03; PT 13.3 Sec (11.4-14.6)
[2024-06-23 10:36] LABS: APTT 31.7 Sec (23.4-35.0)
[2024-06-23 10:56] LABS: Glycohemoglobin (HgbA1c) 4.5 % (4.0-5.6)
[2024-06-23 11:43] LABS: ALT (SGPT) 26 U/L (0-50); AST (SGOT) 27 U/L (17-59); Albumin 5.1 g/dl (3.5-5.0); Alkaline Phosphatase 64 U/L (38-126); Blood Urea Nitrogen 18 mg/dl (9-20); Calcium 10.2 mg/dl (8.4-10.2); Carbon Dioxide 26 mmol/L (22-30); Chloride 104 mmol/L (98-107); Direct Bilirubin 0.4 mg/dl (0.0-0.4); Estimated Creatinine Clearance 82 ml/min; Glucose 83 mg/dl (70-99); Potassium 4.5 mmol/L (3.5-5.1); Sodium 140 mmol/L (135-145); Total Bilirubin 3.2 mg/dl (0.2-1.3); Total Protein 7.4 g/dl (6.3-8.2); eGFR > 60.00
[2024-07-15 05:17] VITALS: BMI 25.7
[2024-07-15 05:30] VITALS: BP 137/87
[2024-07-15] MEDS: PROTONIX 40 MG PO (05:32)
[2024-07-15] MEDS: BACTROBAN 2% OINTMENT 1 APPLIC NASAL ×2 (05:33→21:02)
[2024-07-15] MEDS: MAGNESIUM OXIDE 500 MG PO (05:33)
[2024-07-15] MEDS: LOPRESSOR 25 MG PO (05:33)
--- NOTE | 2024-07-15 06:50 | PTCARENOTE ---
Patient prepped for SDA of MVR. Confirmed NPO PMN. Confirmed 2xCHG showers. Clipped and chg wipes applied. Preop meds administered. Patient transported to [facility] at approx 0635
[2024-07-15 07:31] LABS: ACT+ - POC 96 Seconds (82-134)
[2024-07-15 08:09] LABS: Urine Albumin Negative (Neg - Trace); Urine Bilirubin Negative (Negative); Urine Character Clear (Clear); Urine Color Yellow; Urine Glucose Negative (Negative); Urine Ketone 1+ (Negative); Urine Leukocyte Negative (Negative); Urine Nitrite Negative (Negative); Urine Occult Blood Negative (Negative); Urine Specific Gravity 1.015 (<1.030); Urine Urobilinogen Negative (Neg - 1+)
[2024-07-15 08:50] LABS: ACT+ - POC 723 Seconds (82-134)
[2024-07-15 08:53] LABS: B.E. - POC -2.3 mmol/L; Glucose - POC 100 mg/dl (65-99); HCO3 - POC 22 mmol/L (21-29); Hematocrit - POC 36 % PCV (42-52); Hemodilution- POC No; Hemoglobin Calculated - POC 12.2; O2 Saturation %Calculated-POC 99.9 5 (92-96); PCO2 - POC 35 mmHg (35-45); PO2 - POC 255 mmHg (80-100); POC Comment BASELINE; Potassium - POC 3.5 mmol/L (3.6-5.0); Sodium - POC 142 mmol/L (135-145); pH - POC 7.41 (7.35-7.45)
[2024-07-15 09:20] LABS: B.E. - POC 1.9 mmol/L; Glucose - POC 93 mg/dl (65-99); HCO3 - POC 25 mmol/L (21-29); Hematocrit - POC 30 % PCV (42-52); Hemodilution- POC Yes; Hemoglobin Calculated - POC 10.3; Ionized Calcium - POC 0.97 mmol/L (1.12-1.27); PCO2 - POC 35 mmHg (35-45); PO2 - POC 564 mmHg (80-100); POC Comment CPB; Potassium - POC 3.9 mmol/L (3.6-5.0); Sodium - POC 139 mmol/L (135-145); pH - POC 7.47 (7.35-7.45)
[2024-07-15 09:33] LABS: ACT+ - POC 723 Seconds (82-134)
[2024-07-15 09:39] LABS: B.E. - POC 0.6 mmol/L; Glucose - POC 140 mg/dl (65-99); HCO3 - POC 27 mmol/L (21-29); Hematocrit - POC 31 % PCV (42-52); Hemodilution- POC Yes; Hemoglobin Calculated - POC 10.5; Ionized Calcium - POC 1.09 mmol/L (1.12-1.27); O2 Saturation %Calculated-POC 99.9 5 (92-96); PCO2 - POC 47 mmHg (35-45); PO2 - POC 337 mmHg (80-100); POC Comment CPB; Potassium - POC 5.2 mmol/L (3.6-5.0); Sodium - POC 139 mmol/L (135-145); pH - POC 7.36 (7.35-7.45)
[2024-07-15 09:49] LABS: ACT+ - POC 593 Seconds (82-134)
[2024-07-15 10:00] LABS: ACT+ - POC > 1003 Seconds (82-134)
[2024-07-15 10:09] LABS: B.E. - POC -0.3 mmol/L; Glucose - POC 139 mg/dl (65-99); HCO3 - POC 26 mmol/L (21-29); Hematocrit - POC 36 % PCV (42-52); Hemodilution- POC Yes; Hemoglobin Calculated - POC 12.3; Ionized Calcium - POC 1.13 mmol/L (1.12-1.27); O2 Saturation %Calculated-POC 99.9 5 (92-96); PCO2 - POC 47 mmHg (35-45); PO2 - POC 313 mmHg (80-100); POC Comment CPB; Potassium - POC 4.4 mmol/L (3.6-5.0); Sodium - POC 141 mmol/L (135-145); pH - POC 7.35 (7.35-7.45)
[2024-07-15 10:20] LABS: ACT+ - POC 558 Seconds (82-134)
[2024-07-15 10:39] LABS: B.E. - POC -1.6 mmol/L; Glucose - POC 108 mg/dl (65-99); HCO3 - POC 26 mmol/L (21-29); Hematocrit - POC 38 % PCV (42-52); Hemodilution- POC Yes; Hemoglobin Calculated - POC 12.8; Ionized Calcium - POC 1.17 mmol/L (1.12-1.27); O2 Saturation %Calculated-POC 99.9 5 (92-96); PCO2 - POC 52 mmHg (35-45); PO2 - POC 366 mmHg (80-100); POC Comment CPB; Potassium - POC 4.5 mmol/L (3.6-5.0); Sodium - POC 143 mmol/L (135-145)
[2024-07-15 10:46] LABS: ACT+ - POC 501 Seconds (82-134)
--- NOTE | 2024-07-15 10:49 | CM ---
pt in OR today, cm to follow.
[2024-07-15 10:55] LABS: B.E. - POC -2.3 mmol/L; Glucose - POC 117 mg/dl (65-99); HCO3 - POC 24 mmol/L (21-29); Hematocrit - POC 35 % PCV (42-52); Hemodilution- POC Yes; Ionized Calcium - POC 1.11 mmol/L (1.12-1.27); PCO2 - POC 45 mmHg (35-45); PO2 - POC 451 mmHg (80-100); POC Comment CPB; Potassium - POC 4.4 mmol/L (3.6-5.0); Sodium - POC 143 mmol/L (135-145); pH - POC 7.33 (7.35-7.45)
[2024-07-15 11:00] LABS: ACT+ - POC 526 Seconds (82-134)
[2024-07-15] MEDS: ANCEF 10 IV ×2 (11:14)
[2024-07-15 11:18] LABS: B.E. - POC -1.8 mmol/L; Glucose - POC 121 mg/dl (65-99); HCO3 - POC 22 mmol/L (21-29); Hematocrit - POC 36 % PCV (42-52); Hemodilution- POC Yes; Hemoglobin Calculated - POC 12.3; Ionized Calcium - POC 1.04 mmol/L (1.12-1.27); PCO2 - POC 33 mmHg (35-45); PO2 - POC 365 mmHg (80-100); POC Comment WARM; Potassium - POC 4.8 mmol/L (3.6-5.0); Sodium - POC 143 mmol/L (135-145); pH - POC 7.43 (7.35-7.45)
[2024-07-15 11:22] LABS: ACT+ - POC 118 Seconds (82-134)
[2024-07-15 11:35] LABS: B.E. - POC -2.6 mmol/L; Glucose - POC 121 mg/dl (65-99); HCO3 - POC 22 mmol/L (21-29); Hematocrit - POC 35 % PCV (42-52); Hemodilution- POC Yes; Hemoglobin Calculated - POC 12.1; Ionized Calcium - POC 1.38 mmol/L (1.12-1.27); O2 Saturation %Calculated-POC 99.8 5 (92-96); PCO2 - POC 38 mmHg (35-45); PO2 - POC 225 mmHg (80-100); POC Comment POST; Sodium - POC 144 mmol/L (135-145); pH - POC 7.37 (7.35-7.45)
--- NOTE | 2024-07-15 11:53 | W.PN.CT.SURG ---
CT Surgery Operative Note
-
CARDIAC SURGERY OPERATIVE REPORT
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
Postoperative Diagnosis: Same
Procedure(s) Performed:
1. Right mini thoracotomy with left common femoral artery cutdown and percutaneous right common femoral vein cannulation under GEORGINA guidance
2. Radical mitral valve repair (40 mm band annuloplasty with 4 pairs of Harrison-Ancelmo cords with 3 going to the posterior leaflet and 1 pair of goretex to the A2 segment of the anterior leaflet, cleft closure along P2 and P1 as well as free edge
remodeling)
3. Ligation of left atrial appendage [35 mm clip]
4. Placement temporary ventricular pacing wires
5. Trans esophageal echocardiography
Date of Surgery: 07/15/2024
Comorbidities:
1. Preserved ejection fraction with chronic diastolic congestive heart failure / recent episode of acute on chronic diastolic heart failure requiring diuresis with lasix
2. Hypertension
3. Atrial Tachycardia and PACs
4. Prolonged QT
5. Hiatal hernia
6. Asthma
7. GERD
8. Guilbert syndrome
9. Former tobacco use, quit in 1999
10. Basal cell carcinoma
Attending Surgeon: Beto Forrest MD, MS
Assistants: Kaylin Montes PA-C (present and necessary for retraction, suctioning, exposure, suture management, wound closure, etc. under my direction)
Anesthesiology: David Arroyo MD and Michelle López CRNA
Scrub and Circulating RNs: Alin De La Garza, TIARA, Ivory Forrester RN
Cigarette Inspector: Risa Monroy CCP
Anesthesia: GETA
EBL: per perfusion records
Products: None
CPB Time: 138 minutes
Aortic Cross Clamp Time: 109 minutes
Indication(s) for Procedures: This is a 53-year-old male who is being seen by heart failure as an outpatient. He also had a recent admission for heart failure requiring diuresis. He was found to have severe mitral valve insufficiency with
symptomatic shortness of breath and fatigue. Given his young age, he was offered mitral valve intervention with surgical repair. Due to his history of atrial tachycardia, he was offered left atrial appendage ligation.
Mitral Valve Description: Rivero valve, significantly prolapse segment of P2 into P3 as well as some redundancy of P1. There were large cleft between P2 and P3 and P3 towards the commissure. There is evidence of mitral annular disjunction along
the posterior leaflet. The anterior leaflet was also thickened and mildly prolapsed above the annular plane. The valve was severely dilated to over 5 cm.
Implants:
1. 40 mm Prakash physio flex angioplasty band, SN [id number]
2. 35 mm clip, serial #[id number]
3. 4 pairs of CV 4 Goretex Neochords
Specimen:
1. None
Findings: Left ventricular ejection fraction preoperatively of 60% with no significant regional wall motion abnormalities. Following surgery his EF remained the same with no new regional wall motion abnormalities. I opted to use arterial
cannulation on his left ARTIST MODEL because the bifurcation was high on the right and he had calcification of the junction of the internal and external iliac vessels. His mitral valve was severely insufficient preoperatively with evidence of bileaflet
prolapse with the posterior leaflet worse in the anterior leaflet. There is also multiple large cleft on the long the posterior leaflet. The mitral valve was repaired using free edge remodeling at P 2 into P3 and towards the commissure using 5-0
Prolene in interrupted fashion the class were also closed. 2 sets of CV4 Harrison-Ancelmo sutures were placed on the anterior lateral and posterior medial papillary muscle heads with 3 pairs of cords going to the posterior leaflet to each scallop. A
single pair of Harrison-Ancelmo cords were placed to the A2 segment from the posterior medial papillary muscle head. The valve was sized from trigone to trigone as well as the anterior leaflet area. It was sized to 40 mm. The band was secured into place
from trigone to trigone using a total of 12 nonpledgeted 2 Ethibond sutures with cor knot. The left atrial vent was verified to be free of any thrombus or debris preoperatively and found to be totally occlusive postoperatively after deploying the
clip across the transverse sinus. After coming off cardiopulmonary bypass there was no residual mitral insufficiency, no systolic anterior motion, and a mean gradient of 2across the valve. No blood products were required, he was in sinus rhythm
did change to junctional rhythm and now was back into sinus rhythm at the conclusion of the case. No blood product were given.
Description of Procedure: The patient was brought to the operating room and placed supine in the table with their right side bumped up and right arm down. Arterial and central access was performed by anesthesiology. The patient was prepped from chin
to toes in the typical sterile fashion. Trans esophageal evaluation of cardiac function and all valvular structures was conducted. Before commencing, a time out was performed by all members of the team. All were in agreement with the procedure and
laterality and I proceeded. A small left groin incision was made to expose the common femoral artery and the right common femoral vein was accessed percutaneously using ultrasound under Seldinger technique placing a 5 Iraqi sheath. A total of
45,000 units of heparin was given. A 5-6 cm right lateral thoracotomy was performed over the 4th intercostal space verified by visualization of the hilum. The common femoral artery and vein were cannulated under transesophageal guidance using open
Seldinger technique. The arterial line was verified to have an appropriate bounce and pressure correlating with testing. Once the ACT was above 400, retrograde autologous priming was done and we commenced cardiopulmonary bypass. Target core
temperature was 34�C.
Carbon dioxide was used to flood the field. The course of the phrenic nerve was identified to prevent injury. The pericardium was opened and two stay sutures were placed to facilitate a ``pericardial table.�� The oblique sinus was developed followed
by the inter atrial groove. An antegrade root vent was inserted and secured with a pursestring suture. The pump flow and mean arterial pressure were lowered and an aortic cross clamp was applied to the ascending aorta. A total of 1.2L initial dose
of Antegrade cardioplegia was delivered. We had rapid electro myocardial quiescence at 300 cc of cardioplegia. The ventricle was monitored for distension by echocardiogram during this time. Once cardioplegia was complete, the left atrial appendage
was seen across the transverse sinus and resembled a chicken wing. It was sized to a 35 mm clip was deployed across transverse sinus and flush the base. The left atrium was incised and enlarged. A left atrial lift retractor was placed. The mitral
valve was inspected. The mitral valve was repaired as described above. The left atriotomy was closed with 3-0 prolene in a running fashion leaving a ventricular vent in place to de-air. After filling the heart, the vent was removed and the prolene
was secured with a corknot. Unipolar ventricular pacing wire was placed on the base of the right ventricle. The patient was placed into Trendelenburg position and pump flows were lowered. The clamp was slowly removed with the root vent turned on.
De-airing maneuvers were performed. We started to rewarm with a target of 36.5�C.
As the heart recovered, the mitral valve and ventricular function were assessed under transesophageal echocardiogram. The LV vent and root vents were removed. Once weaning parameters were satisfactory, cardiopulmonary bypass flow was lowered until
we were off cardiopulmonary bypass the mitral valve was inspected again. All surgical sites were inspected for hemostasis and appeared appropriate. The lines were clamped and the arterial was relocated to the venous cannula to give back volume. A
test dose of protamine was delivered and patient was monitored for any adverse reactions followed by complete protamine dosing. The femoral vessels were decannulated and repaired as indicated. The pericardium was approximated with 2-0 ethibond
sutures secured with corknots. One 19F Antonio drain remained in the pleural space and threaded into the pericardium through the oblique sinus. There was an excellent palpable distal to the ARTIST MODEL cannulation site. Local analgesia was injected to the
thoracotomy. The rib space was approximated with #2 Vicryl suture. The incision was closed in layers in a running fashion.
All instrument, sponge, and needle counts were confirmed to be correct x 2 at the end of the operation. The patient was transferred to the cardiac intensive care unit in critical but stable condition.
I, Dr. Beto Forrest, was present, scrubbed for, and performed all critical elements of this procedure.
Beto Forrest MD, MS
Cardiothoracic Surgeon
[facility]
This dictation was created using the Need Fixed dictation system. Please excuse any grammatical, typographical, or 'sound alike' errors
--- NOTE | 2024-07-15 12:04 | W.PN.UPDATE ---
Update Note
Progress Note Update
IV fluids: 2000
U.O.:� 400
UF:� 3000
Blood:� None
Wires:� V wires
Inotropes:� None
Pressors:� Levophed
Sedatives:� Precedex
�
NEURO: sedated on precedex, pupils +2mm B/L
RESP: #8OT @24cm>14/500/60/5 Lungs clear B/L. Ct total= 5 chest tubes to -20cm suction. Sanguineous drainage
CV: RRR +S1, S2, no S3, no�rub, no murmur. Dermabond to median sternotomy. RIJ w/Arthur locked @ 45cm.
ABD: round, soft, no BS
EXT: no edema, +2/4 DP pulses B/L, no femoral bruit, Left radial arterial line
: Garduno with clear yellow urine
�
A/P: POD #0 s/p radical mitral valve repair (40 mm band annuloplasty with 4 pairs of Adrian-Ancelmo cords with 3 going to the posterior leaflet and 1 pair of goretex to the A2 segment of the anterior leaflet, cleft closure along P2 and P1 as well as free
edge remodeling)
GEORGINA: EF�NML
- wean and extubate
- Monitor CT and urine output
- Follow up labs and CXR
- Wean levophed for maps >65
- Will start ASA tonight
- EKG pending and will send to cards
- Cards consulted
�
# acute surgical blood loss anemia-expected
- trend CBC
��
# Hyperglycemia (A1C 4.5)
- insulin infusion x 24h
�
[2024-07-15 12:05] LABS: Glucose - Point of Care 118 mg/dl (70-99)
[2024-07-15 12:20] LABS: Hematocrit 36.9 % (39.0-52.0); Hemoglobin 13.4 g/dL (13.0-18.0); Platelet Count 162 10^3/uL (130-400)
[2024-07-15 12:30] LABS: B.E. -3.5 mmol/L; HCO3 22.1 mmol/L (21-28); Ionized Calcium 1.22 mMOL/L (1.15-1.33); O2 Therapy VENT; PCO2 41 mmHg (35-48); PO2 239 mmHg (83-108); Potassium 3.8 mMOL/L (3.5-5.1); Sodium 137 mMOL/L (136-145); pH 7.34 (7.35-7.45)
[2024-07-15 12:32] LABS: Mixed Venous O2 Saturation 87.5 %
[2024-07-15 12:36] LABS: INR 1.64; PT 19.2 Sec (11.4-14.6)
[2024-07-15 12:37] LABS: APTT 30.5 Sec (23.4-35.0)
[2024-07-15 12:42] LABS: Blood Urea Nitrogen 12 mg/dl (9-20); Estimated Creatinine Clearance 100 ml/min; Glucose 111 mg/dl (70-99)
--- NOTE | 2024-07-15 13:00 | PTCARENOTE ---
Assumed care of patient at 0700. Pt is intubated and sedated, remains on Precedex currently at 0.4mcg/kg/hr. Pt SR HR 74. BP 101/56 MAP 78. PA pressure 23/13, CVP 8, CO 4.60, CI 2.31, SVR 1182. Epicardial V wire in place, no pacing required at this
time. Pt initially on Levo at 2mcg/min, now currently off. Radial and pedal pulses palpable. Pt with Van hugger in place, initial temp 95.5. Pt intubated with #8 ET tube at 24cm on right lip. SIMV FiO2 40%, rate 14, TV 500, pressure support 5, PEEP
5. Pulse oximetry 99%. Lateral right pleural chest tube in place draining red drainage, no sign of air leak or crepitus. Bowel sounds hypoactive. Garduno catheter in place draining yellow urine. Garduno care completed. Right lateral incision site
approximated with surgical adhesiveRACHNA. Right groin punctures dressing CDI. Pt remains on insulin gtt per glycemic protocol. Post-op xray completed, EKG completed. Labs obtained and reviewed, potassium being replaced.
[2024-07-15 13:17] LABS: Glucose - Point of Care 112 mg/dl (70-99)
[2024-07-15] MEDS: KCL 50 IV (13:20)
[2024-07-15] MEDS: NSS 500 IV (13:22)
[2024-07-15] MEDS: THERAGRAN PO (13:23)
[2024-07-15] MEDS: NEURONTIN PO (13:23)
[2024-07-15] MEDS: TYLENOL PO (13:24)
--- NOTE | 2024-07-15 13:37 | W.PN.CARDCBS ---
Addendum entered and electronically signed by Valente Chang MD 07/15/24 15:26:
Attending addendum: Patient seen and examined. PA note reviewed and findings confirmed by me. Briefly, 53 y/o gentleman with longstanding severe mitral regurgitation secondary to bileaflet prolapse and recent admission for heart failure. He
underwent right minithoracotomy and repair with CV 4 Goretex Neochords x 4 pairs, 40 mm Prkaash PhysioFlex angioplasty band and 35 mm MIRIAM Clip.
He is now post operative, awake and conversant
PE:
Gen: Awake and interactive.
HEENT: NC/AT, sclera anicteric
Lungs: Clear anteriorly, chest tubes in place
CV: +rub. Regular rhythm
Ext: No edema
RECOMMENDATIONS:
-hemodynamically stable, extubated. Clinically looking good.
-Continue to wean pressors as tolerated.
Original Note:
Today's Communication / Plan
-
continue post op care
in SR
Impression / Plan
-
PCP: Dr. Vogt
Cardiology: Dr. Chang
Impression:
Severe MR s/p radical mitral valve repair via right minithoracotomy, MIRIAM clip 07/15/24
Chronic HFpEF
Palpitations
PACs and sinus tachycardia
Asthma
GERD
Former smoker
GEORGINA 09/07/21: Hyperdynamic LV systolic function EF 65 to 70%, normal regional wall motion, mildly dilated LA, mildly thickened mitral valve leaflets, prolapse of the anterior and posterior mitral valve leaflets present, moderate to severe MR,
significant prolapse of P2, P3 and A2 with mild pulmonary vein flow reversal, E wave velocity 78 cm/S, PISA ERO 0.3 cm/sq with regurgitant volume 35 mL
Echo 10/04/22: EF 50-55%, , mild conc LVH, prolapse of the posterior mitral leaflet was present, mod to sev MR, no MS, compared to the previous GEORGINA Aug 2021, there is no significant change.
Echo 05/25/23: EF 65%, normal RV size and function, bileaflet mitral valve prolapse, moderate to severe MR, vena contracta 0.6 cm, PISA calculated ERO 0.2 cm with regurgitant volume 19 mL, peak E wave velocity 90 cm/sq, there was systolic pulmonary
vein flow reversal, no MS, trace aortic regurgitation, trace TR with PAP 20-25 mmHg
ECHO 06/02/24: EF 60 to 65%, bileaflet mitral valve prolapse, moderate to severe MR, no MS
Plan:
-s/p radical mitral valve repair via right minithoracotomy, MIRIAM clip 07/15/24
-intubated. waking up, weaning sedation
-off pressors. CI 2.3
-no blood products required. hgb 13.4
-post op EKG SR. follow on tele
-continue post op care
-was on 20mg po lasix prior to admission
-d/w nursing. d/w family at bedside
Progress Note - Linen Worker
Subjective
Date of Service: July 15, 2024
waking up post surgery
Objective
Labs:
07/15/24 11:54
Labs
Hgb 13.4 g/dL (13.0-18.0) 07/15/24 11:54
Hct 36.9 % (39.0-52.0) L 07/15/24 11:54
Plt Count 162 10^3/uL (130-400) 07/15/24 11:54
PT 19.2 Sec (11.4-14.6) H 07/15/24 11:54
INR 1.64 07/15/24 11:54
APTT 30.5 Sec (23.4-35.0) 07/15/24 11:54
Sodium 140 mmol/L (135-145) 06/23/24 09:00
Potassium 4.5 mmol/L (3.5-5.1) 06/23/24 09:00
BUN 12 mg/dl (9-20) 07/15/24 11:54
Creatinine 0.9 mg/dL (0.7-1.3) 07/15/24 11:54
Glucose 111 mg/dl (70-99) H 07/15/24 11:54
Vital Signs and I&O:
Vital Signs
Temp Pulse Resp BP Pulse Ox
97.4 F 73 12 137/87 100
07/15/24 13:00 07/15/24 13:15 07/15/24 13:15 07/15/24 05:30 07/15/24 13:35
Vital Signs
Temp Pulse Resp BP Pulse Ox
97.4 F 73 12 137/87 100
07/15/24 13:00 07/15/24 13:15 07/15/24 13:15 07/15/24 05:30 07/15/24 13:35
Intake & Output
07/13/24 07/14/24 07/15/24 07/16/24
07:59 07:59 07:59 07:59
Intake Total 100.4 / 100.4
Output Total 210 / 210
Balance -109.6 / -109.6
Physical Exam
Physical Exam
GEN: No distress, awake, groggy, intubated. on marianne hugger
HEENT: supple, anicteric, mmm
LUNGS: CTA B/L, no wheezes/rales
CV: Reg, S1/S2, no murmur
ABD: soft, BS+, NT/ND
EXT: No cyanosis, clubbing, edema
NEURO: Gross non-focal
SKIN: Warm, pink, dry. No rash. Incisions c/d/i. CTs in place
--- NOTE | 2024-07-15 13:55 | CON.INTV ---
Consultation
Consultation Request
Date/Time Consultation Requested: 07/15/2024
Date/Time Consultation Performed: 07/15/2024
Requesting Provider: Dr. Forrest
Performing Provider: Dr. Haim Suarez
Reason for Consultation: Status post right minithoracotomy/radical mitral valve repair/left atrial a
Medical History
-
History of Present Illness:
53-year-old man with history of atrial fibrillation, recently diagnosed with moderate to severe mitral insufficiency. He was evaluated by Dr. Forrest in the outpatient setting and he was deemed candidate for mitral valve repair due to his symptoms.
Surgery underwent on 07/15/2024 without complication.
Currently in the critical care unit, intubated on mechanical ventilation.
Records reviewed.
Past Medical History
Past Medical History: Other (See assessment and plan findings)
Social History
Tobacco: Former Smoker (Quit in 1998. Half a pack a day from 20 to quitting in 1998 for)
Alcohol: Other (1 to 2 glass of wine on weekends)
Drug: None
Personal: Single
Employment: Other (Patient works in IT)
Family History
Family History: Reviewed & Not Pertinent
Allergies / Home Medications
Allergies
Allergy/AdvReac Type Severity Reaction Status Date / Time
epinephrine Allergy Tachycardia, Verified 06/27/24 08:23
lightheaded
lidocaine Allergy Residual Verified 06/27/24 08:23
numbess,
tingling
mold Allergy congestion Verified 06/27/24 08:23
Home Medications
�Medication �Instructions �Recorded �Confirmed �Last Taken �Type
aspirin 81 mg tablet,delayed 81 mg PO HS Blood Clot 06/01/24 07/15/24 07/13/24 History
release Prevention/Tx
carboxymethylcellulose 0.5 1 drp BOTH EYES BID Eye Condition 06/01/24 07/15/24 07/14/24 History
%-glycerin 0.9 % eye drops
(Refresh Optive)
famotidine-Ca carb-mag hydrox 10 1 tab PO BID Gastrointestinal Issue 06/01/24 07/15/24 07/14/24 History
mg-800 mg-165 mg chewable tablet
(Pepcid Complete)
furosemide 20 mg tablet (Lasix) 20 mg PO DAILY #30 tabs 06/03/24 07/15/24 07/14/24 Rx
multivitamin 1 tab PO DAILY Supplement 06/19/24 07/15/24 07/08/24 History
Review of Systems
-
Unable to Obtain full review of systems at this time due to: Patient Intubation
Vitals / Labs / Diagnostic Testing
Vital Signs
Temp Pulse Resp BP Pulse Ox
97.4 F 73 12 137/87 100
07/15/24 13:00 07/15/24 13:15 07/15/24 13:15 07/15/24 05:30 07/15/24 13:35
Lab Data
07/15/24 11:54
Laboratory Results
07/15/24
11:54
PT 19.2 H
INR 1.64
APTT 30.5
pH 7.34 L
pCO2 41
pO2 239 H
HCO3 22.1
O2 Delivery Level Vent
Diagnostic Testing:
Physical Exam
-
HEENT: Normocephalic and Other (ET tube in place without secretion)
Cardiovascular: S1/S2
Respiratory: Clear and Non-Labored Respirations
GI: Soft and Non Distended
Neurology: Other (Sedated. Able to move 4 extremities)
Skin: Warm
General: Comfortable
Assessment
-
Status post minithoracotomy on the right with radical mitral valve repair 07/15/[address] Forrest
Postoperative mechanical ventilation
Conditions present prior admission:
Heart failure with preserved ejection fraction
Hypertension
Atrial tachycardia
Prolonged QT
GERD/hiatal hernia
History of asthma
History of Gilbert's syndrome
Former tobacco use quit in 1999
Prior history of basal cell carcinoma
Assessment and plan:
His doing well postop-currently on mechanical ventilation and appears comfortable.
ABG reviewed: Adequate oxygenation ventilation
Continue SIMV mode with no change
Spontaneous breathing trial per protocol once sedation wears off. Hopefully to be extubated in the next hour.
Anemia noted-no evidence of acute bleeding
Follow H&H serially
Hemodynamics -stable off vasopressors
Good urinary output.
Normal renal function.
Chest tube with no excessive drainage-no air leak.
Chest x-ray reviewed 07/15/2024: With no pneumothorax or fluid collections.
Remain nothing by mouth
Head of the bed elevation
Glycemic control per protocol
DVT prophylaxis when safe from the surgical perspective.
Critical care statement: A total of 31 minutes of critical care time was provided for this patient today. This includes management of unstable vital signs, evaluation of the patient at bedside, reviewing the patient's pertinent medical records
including ventilator settings, arterial blood gases, radiographs, microbiology, laboratory evaluations and discussion with primary team, critical care nursing, and respiratory therapy.
[2024-07-15 14:01] LABS: Glucose - Point of Care 125 mg/dl (70-99)
[2024-07-15 14:12] LABS: B.E. -2.8 mmol/L; HCO3 20.8 mmol/L (21-28); O2 Saturation % 99.9 % (94-98); PCO2 32 mmHg (35-48); PO2 188 mmHg (83-108); pH 7.42 (7.35-7.45)
[2024-07-15 14:13] LABS: O2 Therapy CPAP 40% FiO2
--- NOTE | 2024-07-15 14:45 | PTCARENOTE ---
Precedex weaned, pt more awake. CPAP trial initiated, ABG collected and results reviewed with CT ATG ARCHITECT Sabrina. Pt extubated with respiratory therapist at 1430 to 6L nasal cannula, pulse oximetry 100%. Pt able to state name and . Pt achieving 750 with
IS.
--- NOTE | 2024-07-15 14:45 | PTCARENOTE ---
BP 88/52 MAP 64. PA pressure 22/10, CVP 7. Pt receiving 250mL LR bolus. Levo at 4mcg/min.
[2024-07-15 14:46] VITALS: BP 87/65
[2024-07-15] MEDS: LR 250 IV ×3 (14:49→23:30)
[2024-07-15] MEDS: DILAUDID 0.25 MG IV ×2 (14:49→23:12)
[2024-07-15 14:54] VITALS: BMI 25.7
[2024-07-15 15:06] LABS: Glucose - Point of Care 137 mg/dl (70-99)
[2024-07-15 16:00] VITALS: BP 95/65
[2024-07-15 16:36] LABS: Glucose - Point of Care 146 mg/dl (70-99)
[2024-07-15] MEDS: ROXICODONE 5 MG PO ×2 (16:45→21:01)
[2024-07-15] MEDS: NEURONTIN 100 MG PO ×2 (16:46→21:01)
[2024-07-15 16:51] LABS: Hemoglobin 13.2 g/dL (13.0-18.0); Platelet Count 214 10^3/uL (130-400)
[2024-07-15] MEDS: PACERONE PO (16:51)
--- NOTE | 2024-07-15 17:00 | PTCARENOTE ---
BP 96/54 MAP 67. PA 26/10, CVP 7. 250mL LR bolus administered. Remains on Levo 4mcg/min.
[2024-07-15 17:16] LABS: Glucose - Point of Care 132 mg/dl (70-99)
[2024-07-15] MEDS: ANCEF 5 IV (18:07)
[2024-07-15] MEDS: DILAUDID 0.5 MG IV ×2 (18:07→21:10)
[2024-07-15] MEDS: LOW STRENGTH ASPIRIN 81 MG PO (18:07)
[2024-07-15 18:20] VITALS: BP 90/61
[2024-07-15 18:52] LABS: Glucose - Point of Care 141 mg/dl (70-99)
[2024-07-15 20:00] VITALS: BP 94/65
--- NOTE | 2024-07-15 20:00 | PTCARENOTE ---
assumed care of pt from previous RN. pt A&Ox4, resting in bed at time of assessment. SR on tele-monitor. temp epicardial v-wires w/ backup settings 30/8/0.8. palpable peripheral pulses. no edema noted. POX 98% on [address] x1 to -20cm wall suction,
draining sanguineous drainage. abd s/n, hypoactive BS. no c/o N/V. tolerating sips of water w/ PO meds. peacock catheter draining clear, yellow urine. all surgical sites stable, CDI. R IJ cordis w/ swan floated to 45cm. L radial a-line. all lines
leveled, zeroed, flushed. PIV intact. see worklist for complete nursing assessment, interventions, VS, & I&Os.
[2024-07-15] MEDS: FLEXERIL 5 MG PO (21:01)
[2024-07-15] MEDS: SENOKOT-S 1 TABLET PO (21:01)
[2024-07-15] MEDS: TYLENOL 1000 MG PO (21:01)
[2024-07-15] MEDS: PACERONE 200 MG PO (21:01)
[2024-07-15 21:15] LABS: Glucose - Point of Care 124 mg/dl (70-99)
[2024-07-15 22:00] VITALS: BP 88/56
[2024-07-15 22:05] LABS: Glucose - Point of Care 111 mg/dl (70-99)
[2024-07-15 23:21] LABS: Glucose - Point of Care 109 mg/dl (70-99)
[2024-07-16] VITALS (29 sets, daily range): BP systolic 74–105; BP diastolic 57–71; PULSE 83; O2SAT 99; BMI 26.3
--- NOTE | 2024-07-16 | PTCARENOTE ---
assessment remains unchanged. VSS. CT drainage within appropriate limits. pain management, see MAR.
[2024-07-16 00:10] LABS: Glucose - Point of Care 106 mg/dl (70-99)
[2024-07-16] MEDS: DILAUDID 0.5 MG IV (00:28)
[2024-07-16 01:03] LABS: Glucose - Point of Care 116 mg/dl (70-99)
[2024-07-16] MEDS: TORADOL 15 MG IV ×3 (01:35→20:36)
[2024-07-16 03:05] LABS: Glucose - Point of Care 103 mg/dl (70-99)
[2024-07-16] MEDS: ANCEF 5 IV ×2 (03:09→11:30)
[2024-07-16] MEDS: ROXICODONE 10 MG PO (03:09)
[2024-07-16] MEDS: LEVOPHED 250 IV ×2 (03:14→22:05)
[2024-07-16 03:19] LABS: Hematocrit 34.1 % (39.0-52.0); Hemoglobin 12.4 g/dL (13.0-18.0); Mean Corp Hgb Conc. 36.4 g/dL (33.0-37.0); Mean Corpuscular Hgb 31.2 pg (27.0-31.0); Mean Corpuscular Volume 85.7 fL (80.0-94.0); Mean Platelet Volume 10.2 fL (7.4-10.4); Platelet Count 233 10^3/uL (130-400); Red Blood Cell Count 3.98 10^6/uL (4.70-6.10); Red Cell Dist. Width 12.6 % (11.5-14.5)
[2024-07-16 04:24] LABS: Blood Urea Nitrogen 15 mg/dl (9-20); Calcium 8.5 mg/dl (8.4-10.2); Carbon Dioxide 23 mmol/L (22-30); Chloride 108 mmol/L (98-107); Estimated Creatinine Clearance 100 ml/min; Glucose 94 mg/dl (70-99); Magnesium 2.3 mg/dl (1.6-2.3); Potassium 4.6 mmol/L (3.5-5.1); Sodium 141 mmol/L (135-145); eGFR > 60.00
[2024-07-16] MEDS: REFRESH EYE DROPS (PF) 1 DROPS OPHTH (04:29)
--- NOTE | 2024-07-16 04:51 | W.PN.CT ---
Today's Communication / Plan
-
-pod #1
-c/o incisional pain and some b/l eye burning in am (better with artificial tears, vision intact b/l)
-Toradol, Carmel, Dilaudid, Flexeril, Gabapentin for pain
-Tmax 100.8-encourage IS
-had brief SVT runs- monitor, continue po Amio
-CI 3.44, CO 6.85, SVR 782. Drips: Levo 3, Insulin
-CT output: R pleur/med 70/150 in 12/24 hrs
-swan dcd
-low UO 10-20 cc/hr overnight. No significant change with 250 of LR (got total 750 LR postop). Cr stable 0.9 today
-wean off Levo, then deline
-hold BB while on Levo
-d/c insulin
-? d/c Garduno
-encourage OOB
Assessment / Plan
-
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 Forrest on 07/15/24,
pod #1
- Intraop GEORGINA: LVEF pre and postop was 60% with no significant regional wma. The MIRIAM was verified to be free of any thrombus or debris preop and found to be totally occlusive postop after deploying the clip across the transverse sinus. There was no
residual mitral insufficiency, no systolic anterior motion, and a mean gradient of 2across the valve.
- Preserved ejection fraction with chronic diastolic congestive heart failure / recent episode of acute on chronic diastolic heart failure requiring diuresis with lasix
- Hypertension
- Non-obstructive CAD
- Atrial Tachycardia and PACs
- Prolonged QT
- Hiatal hernia
- Asthma
- GERD
- Guilbert syndrome
- Former tobacco use, quit in 1999
- Basal cell carcinoma
- Hx prostatitis
- R ankle surgery x2
- Lap johanna 2019
- Hx T&A sx
- Acute postop blood loss anemia - stable, no transfusion
- Acute postop atelectasis
- Acute postop hypovolemia with subsequent hypervolemia
- Suspected acute postop pericarditis on ECG
Discussed patient care with: Nursing and Care Team
Subjective
Procedure
s/p R mini thoracotomy with Radical mitral valve repair (40 mm band annuloplasty with 4 pairs of [place]-Ancelmo cords) and LAAE (35 mm clip) by Dr. Forrest on 07/15/24
-
Date of Service: July 16, 2024
Objective Data
-
PT 19.2 Sec (11.4-14.6) H 07/15/24 11:54
INR 1.64 07/15/24 11:54
APTT 30.5 Sec (23.4-35.0) 07/15/24 11:54
Vital Signs
Vital Signs
Temp Pulse Resp BP Pulse Ox
99.9 F 75 21 105/71 99
07/16/24 00:00 07/16/24 00:00 07/16/24 00:00 07/16/24 00:00 07/16/24 00:00
CT Intake/Output/Weight
07/15/24 07/15/24 07/16/24
06:59 18:59 06:59
Intake Total 987.2 / 1215.4 228.2 / 1215.4
Output Total 590 / 750 160 / 750
Balance 397.2 / 465.4 68.2 / 465.4
SaO2: 99
Physical Exam
-
General: Awake and AOx3
Cardiovascular: Regular rate & rhythm, No Murmurs and Rub
Respiratory: Decreased Breath Sounds
Sternum: Stable
Incision: Clean, Dry and Intact
Extremities: No Edema (2+ DPs b/l)
Data Reviewed
-
Lab Results: Results Reviewed
Medications: Active Meds Reviewed
Chest X-Ray: Report Reviewed and Image Reviewed
ECG: Report Reviewed and Image Reviewed
[2024-07-16] MEDS: FLEXERIL 5 MG PO ×2 (05:08→18:14)
[2024-07-16] MEDS: TYLENOL 1000 MG PO ×3 (05:08→22:04)
[2024-07-16 05:16] LABS: Glucose - Point of Care 105 mg/dl (70-99)
[2024-07-16 06:47] LABS: B.E. -1.7 mmol/L; Ionized Calcium 1.21 mMOL/L (1.15-1.33); O2 Saturation % 98.6 % (94-98); PCO2 38 mmHg (35-48); PO2 86 mmHg (83-108); pH 7.39 (7.35-7.45)
[2024-07-16 07:25] LABS: Glucose - Point of Care 98 mg/dl (70-99)
[2024-07-16] MEDS: THERAGRAN 1 TABLET PO (07:27)
[2024-07-16] MEDS: LOW STRENGTH ASPIRIN 81 MG PO (07:27)
[2024-07-16] MEDS: NEURONTIN 100 MG PO ×3 (07:27→22:04)
[2024-07-16] MEDS: MAGNESIUM OXIDE 500 MG PO ×2 (07:27→20:35)
[2024-07-16] MEDS: COLCHICINE 0.3 MG PO (07:27)
[2024-07-16] MEDS: PROTONIX 40 MG PO (07:27)
[2024-07-16] MEDS: SENOKOT-S 1 TABLET PO ×2 (07:27→20:35)
[2024-07-16] MEDS: BACTROBAN 2% OINTMENT 1 APPLIC NASAL ×2 (07:28→20:37)
[2024-07-16] MEDS: PACERONE 200 MG PO ×3 (07:31→20:36)
--- NOTE | 2024-07-16 08:22 | W.PN.ANS.POP ---
Anesthesia Post Operative
- Anesthesia Post Op Note
Vital Signs Stable-See Nursing Note: Yes
Airway Patent: Yes
Adequate Pain Control: Yes
Change in Mental Status: No
Current Postoperative Nausea & Vomiting: No
Anesthesia Complications: No
General Anesthetic Recall: No
Unplanned Admission: No
Post Op Hydration Adequate: Yes
- -
Pt awake and alert- OOB to chair with no anesthesia related c/o at time of post op visit. VSS
--- NOTE | 2024-07-16 08:29 | PTCARENOTE ---
Assumed care of patient at 0700. Pt is awake, alert, and oriented. Minimal complaints of pain at this time. Pt remains SR with HR 70's-80's. BP 106/57 MAP 69. Remains on Levo at 3mcg/min. Epicardial V wire in place set to VVI, 30/8/0.8 Pulse
oximetry 97% on room air. Lateral right pleural chest tube in place draining serosanguineous drainage, no sign of air leak or crepitus. Pt tolerating PO medications. Garduno catheter remains in place at this time. Right lateral incision approximated
and DRAFTER [employer]LECT[employer]. Right groin site dressing CDI. Left groin incision approximated RACHNA. Left radial Stebbins remains in place. Right IJ cordis intact with KVO. Pt remains on insulin gtt per glycemic protocol. Pt remains OOB in chair resting comfortably at this
time with call dumont within reach.
[2024-07-16 09:13] LABS: Glucose - Point of Care 126 mg/dl (70-99)
[2024-07-16] MEDS: ALBUMIN 5% 250 IV (11:29)
--- NOTE | 2024-07-16 11:30 | PTCARENOTE ---
BP 92/54 MAP 64. Remains on Levo at 4mcg/hr. 250mL 5% Albumin administered.
[2024-07-16 11:37] LABS: Glucose - Point of Care 100 mg/dl (70-99)
--- NOTE | 2024-07-16 11:41 | CM ---
CM following for DC planning needs.
Met w/ patient, spouse and additional family at bedside. Patient reports that he is feeling well.
Antic. DC plan is for home with CT Transitional Care RN.
CM to follow.
[2024-07-16] MEDS: NSS IV (11:50)
[2024-07-16] MEDS: LR 250 IV (12:15)
[2024-07-16 12:20] LABS: Glucose - Point of Care 97 mg/dl (70-99)
--- NOTE | 2024-07-16 12:30 | PTCARENOTE ---
Pt on Levo at 6mcg/min. BP 103/[address] MEDICAL LABORATORY TECHNICIAN, Sabrina, 250mL LR bolus administered per order.
--- NOTE | 2024-07-16 14:05 | PTCARENOTE ---
assumed care of pt, levophed gtt maintained at 4mcg, pain well controlled, pleural CT w minimal amount of drainage. Plan of care reviewed w the pt and questions encouraged.
[2024-07-16] MEDS: FERRLECIT 110 MG IV (14:10)
--- NOTE | 2024-07-16 14:23 | W.PN.INTV ---
Today's Communication / Plan
Recommendations
Continue postoperative care
Follow H&H
Follow leukocytosis and fever curve
wean off Levophed as able.
Incentive spirometer
Increase mobility as able
Daily chest x-ray
Chest tube output will be followed
Sign off
Assessment
-
Status post minithoracotomy on the right with radical mitral valve repair 07/15/[address] Forrest
Postoperative mechanical ventilation
Conditions present prior admission:
Heart failure with preserved ejection fraction
Hypertension
Atrial tachycardia
Prolonged QT
GERD/hiatal hernia
History of asthma
History of Gilbert's syndrome
Former tobacco use quit in 1999
Prior history of basal cell carcinoma
Assessment and plan:
Postoperative day 1
Doing well
Currently on room air.
Continue analgesia with narcotics, watch respiratory status close
Incentive spirometry encouraged
Increase activity as able per protocol
Anemia noted-no evidence of acute bleeding
Follow H&H serially
Leukocytosis noted, initially with low-grade fevers now has resolved.
Continue to monitor
Hemodynamics -on low rate Levophed. Wean off as able.
Comfortable sitting out of bed.
Good urinary output.
Normal renal function.
Chest tube with no excessive drainage-no air leak.
Chest x-ray reviewed 07/15/2024: With no pneumothorax or fluid collections.
Chest x-ray 07/16/2024:Reviewed, showed postoperative changes. No pneumothorax or fluid collection.
Advance diet as tolerated
Head of the bed elevation
Glycemic control per protocol
DVT prophylaxis when safe from the surgical perspective.
Patient has been transition to telemetry. Critical care team will sign off. Please call pulmonary if respiratory issues arise.
Subjective Dataa
Subjective Data
Date of Service:
Date of Service: July 16, 2024
Chief Complaint: Health Policy Analyst Follow Up (Status post mitral valve repair)
Subjective:
Extubated.
Hemodynamically stable
Pain relatively controlled
Denies cough or phlegm production.
Review of Systems
Cardiopulmonary: Dyspnea (n)
GI: Abdominal Pain (n), Nausea (n) and Vomiting (n)
Objective Data
Data Reviewed
Vital Signs / I&O / Oxygen:
Vital Signs
Temp Pulse Resp BP Pulse Ox
98.3 F 86 18 96/63 99
07/16/24 11:00 07/16/24 13:58 07/16/24 13:58 07/16/24 13:00 07/16/24 13:58
Intake and Output
07/15/24 07/16/24 07/17/24
06:59 06:59 06:59
Intake Total 1450.5 / 1472.6 694.5 / 694.5
Output Total 925 / 960 130 / 130
Balance 525.5 / 512.6 564.5 / 564.5
SaO2 [CPAP] 100
SaO2 [SIMV] 99
SaO2 99
Nasal Cannula flow liters per 2
minute
Physical Exam
General: Comfortable
HEENT: Normocephalic
Cardiovascular: S1-S2
Respiratory: Clear, Non-Labored Respirations and Chest Tube (No excessive drainage, no air leak)
GI: Soft
Neurology: Awake, Alert, AO x 3 and No Motor Deficits
Labs/Micro/Reports
Lab Data
07/16/24 03:02
07/16/24 03:02
Laboratory Results
07/16/24
06:30
pH 7.39
pCO2 38
pO2 86
HCO3 23.0
O2 Delivery Level
--- NOTE | 2024-07-16 14:34 | W.PN.CARDCBS ---
Addendum entered and electronically signed by Irvin Connor MD 07/16/24 17:53:
I saw and examined the patient.
The Paraplanner's note was reviewed and I agree with the note.
Comment: Briefly, 53-year-old man past medical history of severe mitral regurgitation who underwent mitral valve repair via minithoracotomy on 07/15/2024
Postoperatively he is recovering in the CVICU, seen earlier resting out of bed to chair
Requiring norepinephrine for pressor support
Volume status is reasonable
Telemetry largely showing normal sinus rhythm. Brief runs of nonsustained VT, AIVR and SVT seen in the last 24 hours. Will continue to monitor on telemetry.
Started on colchicine with concern for pericarditis which may explain his back/shoulder pain given diffuse ST elevations on twelve-lead ECG
Agree with current cardiac meds
We will continue to follow
Original Note:
Today's Communication / Plan
-
continue post op care
pain mgmt - on colchicine for pericarditis by EKG
wean levo
follow temp curve/white count
Impression / Plan
-
PCP: Dr. Vogt
Cardiology: Dr. Chang
Impression:
Severe MR s/p radical mitral valve repair via right minithoracotomy, MIRIAM clip 07/15/24
Chronic HFpEF
Palpitations
PACs and sinus tachycardia
Asthma
GERD
Former smoker
GEORGINA 09/07/21: Hyperdynamic LV systolic function EF 65 to 70%, normal regional wall motion, mildly dilated LA, mildly thickened mitral valve leaflets, prolapse of the anterior and posterior mitral valve leaflets present, moderate to severe MR,
significant prolapse of P2, P3 and A2 with mild pulmonary vein flow reversal, E wave velocity 78 cm/S, PISA ERO 0.3 cm/sq with regurgitant volume 35 mL
Echo 10/04/22: EF 50-55%, , mild conc LVH, prolapse of the posterior mitral leaflet was present, mod to sev MR, no MS, compared to the previous GEORGINA Aug 2021, there is no significant change.
Echo 05/25/23: EF 65%, normal RV size and function, bileaflet mitral valve prolapse, moderate to severe MR, vena contracta 0.6 cm, PISA calculated ERO 0.2 cm with regurgitant volume 19 mL, peak E wave velocity 90 cm/sq, there was systolic pulmonary
vein flow reversal, no MS, trace aortic regurgitation, trace TR with PAP 20-25 mmHg
ECHO 06/02/24: EF 60 to 65%, bileaflet mitral valve prolapse, moderate to severe MR, no MS
Plan:
-s/p radical mitral valve repair via right minithoracotomy, MIRIAM clip 07/15/24
-with low grade temps and leukocytosis. monitor for evidence of infection, however all possibly reactive
-remains on levo @4, wean as able. attempting to transition to midodrine
-with significant pain overnight. started on colchicine with improvement. EKG with what appears to be pericarditis. continue pain mgmt per surgery
-continue asa. hgb 12.4
-in SR with 1 12-beat run of NSVT and 2 brief runs of SVT/atach. continue amiodarone. K/mag stable. BB on hold with hypotension
-continue post op care. continue IS
-was on 20mg po lasix prior to admission
-d/w nursing. d/w family at bedside
Progress Note - Substation Supervisor
Subjective
Date of Service: July 16, 2024
reports pain better than last night.
Objective
Labs:
07/16/24 03:02
07/16/24 03:02
Labs
Hgb 12.4 g/dL (13.0-18.0) L 07/16/24 03:02
Hct 34.1 % (39.0-52.0) L 07/16/24 03:02
Plt Count 233 10^3/uL (130-400) 07/16/24 03:02
PT 19.2 Sec (11.4-14.6) H 07/15/24 11:54
INR 1.64 07/15/24 11:54
APTT 30.5 Sec (23.4-35.0) 07/15/24 11:54
Sodium 141 mmol/L (135-145) 07/16/24 03:02
Potassium 4.6 mmol/L (3.5-5.1) 07/16/24 03:02
BUN 15 mg/dl (9-20) 07/16/24 03:02
Creatinine 0.9 mg/dL (0.7-1.3) 07/16/24 03:02
Glucose 94 mg/dl (70-99) 07/16/24 03:02
Vital Signs and I&O:
Vital Signs
Temp Pulse Resp BP Pulse Ox
98.3 F 86 18 96/63 99
07/16/24 11:00 07/16/24 13:58 07/16/24 13:58 07/16/24 13:00 07/16/24 13:58
Vital Signs
Temp Pulse Resp BP Pulse Ox
98.3 F 86 18 96/63 99
07/16/24 11:00 07/16/24 13:58 07/16/24 13:58 07/16/24 13:00 07/16/24 13:58
Intake & Output
07/14/24 07/15/24 07/16/24 07/17/24
07:59 07:59 07:59 07:59
Intake Total 1472.6 / 1494.7 672.4 / 672.4
Output Total 960 / 970 95 / 95
Balance 512.6 / 524.7 577.4 / 577.4
Physical Exam
Physical Exam
GEN: No distress, awake, alert, oriented x3. sitting in chair. on supp O2
HEENT: supple, anicteric, mmm, eomi
LUNGS: Decreased BS B/L, no wheezes
CV: Reg, S1/S2, no murmur
EXT: No cyanosis, clubbing. trace edema of B/L LE
NEURO: Gross non-focal
SKIN: Warm, pink, dry. No rash. chest dressings c/d/i.
[2024-07-16] MEDS: ProAmatine 10 MG PO (18:11)
--- NOTE | 2024-07-16 19:00 | PTCARENOTE ---
Bedside walking rounds report received. Patient seen on rounds resting in chair. Awake alert and oriented x 3. Room air. Levophed gtt maintained at current settings: attempting to wean to maintain MAP's >65. See flow record for pain management
documentation. NSR to ST at rest. Garduno catheter remains in place.
[2024-07-17] VITALS (25 sets, daily range): BP systolic 84–103; BP diastolic 59–70; PULSE 87; O2SAT 97–98; BMI 27.0
--- NOTE | 2024-07-17 | PTCARENOTE ---
Levophed gtt increased to 6mcg to maintain MAP's greater than 65mmhg. It was also noted that urine output had also been 20ml/hr past hr: Laura Ramos aware of same. Continue with current plan.
[2024-07-17] MEDS: ROXICODONE 5 MG PO (01:36)
[2024-07-17] MEDS: ZOFRAN 4 MG IV (03:57)
[2024-07-17] MEDS: TORADOL 15 MG IV (03:57)
--- NOTE | 2024-07-17 04:00 | PTCARENOTE ---
No acute changes. Unable to wean the levophed below 4mcg/min to maintain MAP's >65. NSR
[2024-07-17 04:35] LABS: Blood Urea Nitrogen 14 mg/dl (9-20); Calcium 8.8 mg/dl (8.4-10.2); Carbon Dioxide 25 mmol/L (22-30); Chloride 103 mmol/L (98-107); Estimated Creatinine Clearance 113 ml/min; Glucose 125 mg/dl (70-99); Magnesium 2.1 mg/dl (1.6-2.3); Potassium 4.1 mmol/L (3.5-5.1); Sodium 135 mmol/L (135-145); eGFR > 60.00
[2024-07-17 04:44] LABS: Hematocrit 33.3 % (39.0-52.0); Hemoglobin 12.1 g/dL (13.0-18.0); Mean Corp Hgb Conc. 36.3 g/dL (33.0-37.0); Mean Corpuscular Volume 88.1 fL (80.0-94.0); Mean Platelet Volume 10.8 fL (7.4-10.4); Platelet Count 141 10^3/uL (130-400); Red Blood Cell Count 3.78 10^6/uL (4.70-6.10); Red Cell Dist. Width 12.8 % (11.5-14.5); White Blood Cell Count 16.7 10^3/uL (4.8-10.8)
--- NOTE | 2024-07-17 05:17 | W.PN.CT ---
Today's Communication / Plan
-
-pod #2
-no issues overnight, denies any lightheadedness with sitting in a chair
-drips: Levo 4
-started on Midodrine for hypotension. Holding BB
-CT output: R pleur/med 70/120 in 12/24 hrs, no air leak
-UO improving (540/795 in 12/24 hrs). Cr stable 0.8 today
-wean off Levo, then deline
-encourage OOB
Assessment / Plan
-
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 Forrest on 07/15/24,
pod #2
- Intraop GEORGINA: LVEF pre and postop was 60% with no significant regional wma. The MIRIAM was verified to be free of any thrombus or debris preop and found to be totally occlusive postop after deploying the clip across the transverse sinus. There was no
residual mitral insufficiency, no systolic anterior motion, and a mean gradient of 2across the valve.
- Preserved ejection fraction with chronic diastolic congestive heart failure / recent episode of acute on chronic diastolic heart failure requiring diuresis with lasix
- Hypertension
- Non-obstructive CAD
- Atrial Tachycardia and PACs
- Prolonged QT
- Hiatal hernia
- Asthma
- GERD
- Guilbert syndrome
- Former tobacco use, quit in 1999
- Basal cell carcinoma
- Hx prostatitis
- R ankle surgery x2
- Lap johanna 2019
- Hx T&A sx
- Acute postop blood loss anemia - stable, no transfusion
- Acute postop atelectasis
- Acute postop hypovolemia with subsequent hypervolemia
- Suspected acute postop pericarditis on ECG
- Acute postop hypotension- started on Midodrine
Discussed patient care with: Nursing and Care Team
Subjective
Procedure
s/p R mini thoracotomy with Radical mitral valve repair (40 mm band annuloplasty with 4 pairs of [place]-Ancelmo cords) and LAAE (35 mm clip) by Dr. Forrest on 07/15/24
-
Date of Service: July 17, 2024
Objective Data
-
Lab Results
07/17/24 03:54
07/17/24 03:54
PT 19.2 Sec (11.4-14.6) H 07/15/24 11:54
INR 1.64 07/15/24 11:54
APTT 30.5 Sec (23.4-35.0) 07/15/24 11:54
Vital Signs
Vital Signs
Temp Pulse Resp BP Pulse Ox
98 F 87 18 94/65 95
07/17/24 03:46 07/17/24 03:46 07/17/24 03:46 07/17/24 03:00 07/17/24 03:46
CT Intake/Output/Weight
07/16/24 07/16/24 07/17/24
06:59 18:59 06:59
Intake Total 463.3 / 1472.6 794.5 / 1187.0 392.5 / 1187.0
Output Total 335 / 960 305 / 915 610 / 915
Balance 128.3 / 512.6 489.5 / 272.0 -217.5 / 272.0
SaO2: 95
Physical Exam
-
General: Awake and AOx3
Cardiovascular: Regular rate & rhythm, No Murmurs and Rub
Respiratory: Decreased Breath Sounds
Sternum: Stable
Incision: Clean, Dry and Dressing Intact
Extremities: No Edema (2+ DPs b/l)
Data Reviewed
-
Lab Results: Results Reviewed
Medications: Active Meds Reviewed
Chest X-Ray: Report Reviewed and Image Reviewed
ECG: Report Reviewed and Image Reviewed
[2024-07-17] MEDS: TYLENOL PO (06:09)
--- NOTE | 2024-07-17 09:13 | PTCARENOTE ---
assumed care of pt from previous shift RN, sinus rhythm on tele, BP via left radial kenneth 96/70 (79), + peripheral pulses, no edema, epicardial V wire insulated. Lungs diminished, pox 97% on RA. +bs, tolerating PO intake, peacock catheter draining
bianka, right pleural CT w serosanguineous drainage. Right IJ cordis w KVO and levophed infusing, PIV flushes easily.
DRIPS: Levophed 3mcg
--- NOTE | 2024-07-17 10:06 | W.PN.UPDATE ---
Update Note
Progress Note Update
No pacing required. Site cleansed with CHG. Suture remmoved and 2 v-wires removed without difficulty. Bedrest x 1 hour and VS q15min x 4
--- NOTE | 2024-07-17 10:13 | PTCARENOTE ---
pacing wire removed by CV MAGDY.
[2024-07-17] MEDS: MAGNESIUM OXIDE 500 MG PO ×2 (10:29→21:11)
[2024-07-17] MEDS: NEURONTIN 100 MG PO ×3 (10:29→21:11)
[2024-07-17] MEDS: ProAmatine 10 MG PO ×3 (10:29→18:07)
[2024-07-17] MEDS: LOW STRENGTH ASPIRIN 81 MG PO (10:29)
[2024-07-17] MEDS: PROTONIX 40 MG PO (10:29)
[2024-07-17] MEDS: PACERONE 200 MG PO ×3 (10:30→21:12)
[2024-07-17] MEDS: THERAGRAN 1 TABLET PO (10:30)
[2024-07-17] MEDS: BACTROBAN 2% OINTMENT 1 APPLIC NASAL ×2 (10:30→21:15)
[2024-07-17] MEDS: SENOKOT-S 1 TABLET PO ×2 (10:30→21:11)
[2024-07-17] MEDS: COLCHICINE 0.3 MG PO (10:30)
--- NOTE | 2024-07-17 12:02 | PTCARENOTE ---
CT and right femoral suture removed without incident.
--- NOTE | 2024-07-17 13:57 | W.PN.CARDCBS ---
Addendum entered and electronically signed by Tamera Peña MD 07/17/24 16:40:
I saw and examined the patient.
The Secondary School Teacher's note was reviewed and I agree with the note.
Comment: Overall better after chest tubes came out.
VItals and labs reviewed. OOB in chair, NAD, A+O x3, Normal S1 and S2, abd soft, NT, NDD, warm extremities, decreased BS at bases
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 Beto Forrest on 07/15/24, POD
# 2
1. Cont supportive post op care. Encourage ambulation and IS.
2. Off Levo. Wean midodrine as tolerated.
3. SR overnight. Cont Amio
4. ECG with likely pericarditis. Cont colchicine. Symptoms improving.
Tamera Peña MD, [facility], [facility]
Original Note:
Today's Communication / Plan
-
Continue postop care. Improving
Wean midodrine as able
Impression / Plan
-
PCP: Dr. Vogt
Cardiology: Dr. Chang
Impression:
Severe MR s/p radical mitral valve repair via right minithoracotomy, MIRIAM clip 07/15/24
Chronic HFpEF
Palpitations
PACs and sinus tachycardia
Asthma
GERD
Former smoker
GEORGINA 09/07/21: Hyperdynamic LV systolic function EF 65 to 70%, normal regional wall motion, mildly dilated LA, mildly thickened mitral valve leaflets, prolapse of the anterior and posterior mitral valve leaflets present, moderate to severe MR,
significant prolapse of P2, P3 and A2 with mild pulmonary vein flow reversal, E wave velocity 78 cm/S, PISA ERO 0.3 cm/sq with regurgitant volume 35 mL
Echo 10/04/22: EF 50-55%, , mild conc LVH, prolapse of the posterior mitral leaflet was present, mod to sev MR, no MS, compared to the previous GEORGINA Aug 2021, there is no significant change.
Echo 05/25/23: EF 65%, normal RV size and function, bileaflet mitral valve prolapse, moderate to severe MR, vena contracta 0.6 cm, PISA calculated ERO 0.2 cm with regurgitant volume 19 mL, peak E wave velocity 90 cm/sq, there was systolic pulmonary
vein flow reversal, no MS, trace aortic regurgitation, trace TR with PAP 20-25 mmHg
ECHO 06/02/24: EF 60 to 65%, bileaflet mitral valve prolapse, moderate to severe MR, no MS
Plan:
-s/p radical mitral valve repair via right minithoracotomy, MIRIAM clip 07/15/24
-doing much better today
-reports breathing/pain much improved s/p CT removal. continue colchicine
-weaned off levo, on midodrine 10mg TID. wean as able. BPs appear stable. po hydration encouraged
-continue asa. hgb 12.1
-in SR on review of tele overnight. continue amiodarone. K/mag stable. BB on hold with hypotension
-continue post op care. continue IS
-was on 20mg po lasix prior to admission
-d/w nursing.
Progress Note - Roofing Superintendent
Subjective
Date of Service: July 17, 2024
Feeling much improved today. States breathing/pain better status post chest tube removal
Objective
Labs:
07/17/24 03:54
07/17/24 03:54
Labs
Hgb 12.1 g/dL (13.0-18.0) L 07/17/24 03:54
Hct 33.3 % (39.0-52.0) L 07/17/24 03:54
Plt Count 141 10^3/uL (130-400) D 07/17/24 03:54
PT 19.2 Sec (11.4-14.6) H 07/15/24 11:54
INR 1.64 07/15/24 11:54
APTT 30.5 Sec (23.4-35.0) 07/15/24 11:54
Sodium 135 mmol/L (135-145) 07/17/24 03:54
Potassium 4.1 mmol/L (3.5-5.1) 07/17/24 03:54
BUN 14 mg/dl (9-20) 07/17/24 03:54
Creatinine 0.8 mg/dL (0.7-1.3) 07/17/24 03:54
Glucose 125 mg/dl (70-99) H 07/17/24 03:54
Vital Signs and I&O:
Vital Signs
Temp Pulse Resp BP Pulse Ox
98.2 F 81 16 93/66 97
07/17/24 12:00 07/17/24 13:00 07/17/24 12:00 07/17/24 13:00 07/17/24 12:00
Vital Signs
Temp Pulse Resp BP Pulse Ox
98.2 F 81 16 93/66 97
07/17/24 12:00 07/17/24 13:00 07/17/24 12:00 07/17/24 13:00 07/17/24 12:00
Intake & Output
07/15/24 07/16/24 07/17/24 07/18/24
07:59 07:59 07:59 07:59
Intake Total 1472.6 / 1494.7 1264.9 / 1289.9 77.5 / 77.5
Output Total 960 / 970 1000 / 1105 165 / 165
Balance 512.6 / 524.7 264.9 / 184.9 -87.5 / -87.5
Physical Exam
Physical Exam
GEN: No distress, awake, alert, oriented x3. sitting in chair.
HEENT: supple, anicteric, mmm, eomi
LUNGS: CTA B/L, no wheezes
CV: Reg, S1/S2, no murmur
EXT: No cyanosis, clubbing. trace edema of B/L LE
NEURO: Gross non-focal
SKIN: Warm, pink, dry. No rash.
[2024-07-17] MEDS: TYLENOL 1000 MG PO ×2 (14:07→21:11)
[2024-07-17] MEDS: FERRLECIT 110 MG IV (14:07)
[2024-07-17] MEDS: NSS 500 IV (14:08)
--- NOTE | 2024-07-17 14:51 | PTCARENOTE ---
kenneth and madonna removed as ordered.
--- NOTE | 2024-07-17 20:00 | PTCARENOTE ---
assumed care of pt from day shift nurse. pt sitting in chair during assessment, pt AAOx3, NSR per tele, palpable pulses, no edema. pox 99% on RA, lungs diminished, +bs, surgical sites intact, RIJ Cordis, PIV intact, call dumont within reach
[2024-07-18] VITALS (8 sets, daily range): BP systolic 93–111; BP diastolic 64–84; PULSE 77; O2SAT 100; BMI 27.3
--- NOTE | 2024-07-18 | PTCARENOTE ---
pt sleeping in bed comfortably, assessment remains unchanged, VSS
--- NOTE | 2024-07-18 03:50 | PTCARENOTE ---
routine labs obtained, VSS, assessment remains unchanged
[2024-07-18 03:57] LABS: Blood Urea Nitrogen 16 mg/dl (9-20); Calcium 8.5 mg/dl (8.4-10.2); Carbon Dioxide 25 mmol/L (22-30); Chloride 104 mmol/L (98-107); Estimated Creatinine Clearance 113 ml/min; Glucose 95 mg/dl (70-99); Magnesium 1.9 mg/dl (1.6-2.3); Potassium 4.3 mmol/L (3.5-5.1); Sodium 137 mmol/L (135-145); eGFR > 60.00
[2024-07-18 04:04] LABS: Hematocrit 28.7 % (39.0-52.0); Hemoglobin 10.6 g/dL (13.0-18.0); Mean Corp Hgb Conc. 36.9 g/dL (33.0-37.0); Mean Corpuscular Hgb 31.6 pg (27.0-31.0); Mean Corpuscular Volume 85.7 fL (80.0-94.0); Mean Platelet Volume 11.2 fL (7.4-10.4); Platelet Count 141 10^3/uL (130-400); Red Blood Cell Count 3.35 10^6/uL (4.70-6.10); Red Cell Dist. Width 12.7 % (11.5-14.5); White Blood Cell Count 11.1 10^3/uL (4.8-10.8)
--- NOTE | 2024-07-18 05:46 | W.PN.CT ---
Today's Communication / Plan
-
-pod #3
-no issues overnight, denies any lightheadedness with walking
-on Midodrine for hypotension. Holding BB, tolerating Amio
-weaned off O2- 95% on RA
-encourage OOB
Assessment / Plan
-
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 Forrest on 07/15/24,
pod #3
- Intraop GEORGINA: LVEF pre and postop was 60% with no significant regional wma. The MIRIAM was verified to be free of any thrombus or debris preop and found to be totally occlusive postop after deploying the clip across the transverse sinus. There was no
residual mitral insufficiency, no systolic anterior motion, and a mean gradient of 2across the valve.
- Preserved ejection fraction with chronic diastolic congestive heart failure / recent episode of acute on chronic diastolic heart failure requiring diuresis with lasix
- Hypertension
- Non-obstructive CAD
- Atrial Tachycardia and PACs
- Prolonged QT
- Hiatal hernia
- Asthma
- GERD
- Guilbert syndrome
- Former tobacco use, quit in 1999
- Basal cell carcinoma
- Hx prostatitis
- R ankle surgery x2
- Lap johanna 2019
- Hx T&A sx
- Acute postop blood loss anemia - stable, no transfusion
- Acute postop atelectasis
- Acute postop hypovolemia with subsequent hypervolemia
- Suspected acute postop pericarditis on ECG
- Acute postop hypotension- started on Midodrine
Discussed patient care with: Nursing and Care Team
Subjective
Procedure
s/p R mini thoracotomy with Radical mitral valve repair (40 mm band annuloplasty with 4 pairs of [place]-Ancelmo cords) and LAAE (35 mm clip) by Dr. Forrest on 07/15/24
-
Date of Service: July 18, 2024
Objective Data
-
Lab Results
07/18/24 03:29
07/18/24 03:29
PT 19.2 Sec (11.4-14.6) H 07/15/24 11:54
INR 1.64 07/15/24 11:54
APTT 30.5 Sec (23.4-35.0) 07/15/24 11:54
Vital Signs
Vital Signs
Temp Pulse Resp BP Pulse Ox
98.3 F 84 16 96/67 99
07/18/24 03:24 07/18/24 03:24 07/18/24 03:24 07/18/24 03:24 07/18/24 03:24
CT Intake/Output/Weight
07/17/24 07/17/24 07/18/24
06:59 18:59 06:59
Intake Total 492.5 / 1287.0 405.0 / 405.0
Output Total 730 / 1035 515 / 1395 880 / 1395
Balance -237.5 / 252.0 -110.0 / -990.0 -880 / -990.0
SaO2: 99
Physical Exam
-
General: Awake and AOx3
Cardiovascular: Regular rate & rhythm, No Murmurs and Rub
Respiratory: Clear and Decreased Breath Sounds
Sternum: Stable
Incision: Clean, Dry and Intact
Extremities: No Edema
Data Reviewed
-
Lab Results: Results Reviewed
Medications: Active Meds Reviewed
Chest X-Ray: Report Reviewed and Image Reviewed
ECG: Report Reviewed and Image Reviewed
[2024-07-18] MEDS: FLEXERIL 5 MG PO (06:05)
[2024-07-18] MEDS: TYLENOL 1000 MG PO (06:05)
[2024-07-18] MEDS: SENOKOT-S 1 TABLET PO (08:28)
[2024-07-18] MEDS: PACERONE 200 MG PO (08:28)
[2024-07-18] MEDS: MAGNESIUM OXIDE 500 MG PO (08:29)
[2024-07-18] MEDS: NEURONTIN 100 MG PO (08:29)
[2024-07-18] MEDS: COLCHICINE 0.3 MG PO (08:29)
[2024-07-18] MEDS: THERAGRAN 1 TABLET PO (08:29)
[2024-07-18] MEDS: ProAmatine 10 MG PO ×2 (08:29→12:38)
[2024-07-18] MEDS: PROTONIX 40 MG PO (08:29)
[2024-07-18] MEDS: LOW STRENGTH ASPIRIN 81 MG PO (08:30)
[2024-07-18] MEDS: KCL 10 MEQ PO (08:30)
[2024-07-18] MEDS: BACTROBAN 2% OINTMENT 1 APPLIC NASAL (08:30)
[2024-07-18] MEDS: LASIX 20 MG IV (09:33)
--- NOTE | 2024-07-18 11:23 | W.[place]-PDMP ---
[place]PD[place]
-
Checked the [place]- Prescription Drug Monitoring Program website, no red flags identified; safe to proceed with prescription.
--- NOTE | 2024-07-18 11:23 | CM ---
CM following for DC planning needs. s
Met w/ patient, spouse at bedside. Pt. reports that he is feeling okay. He is anticipating DC soon.
We reviewed post op appointments, visit from [facility] Transitional Care RN. No further needs or concerns noted at this time.
Antic. DC is for home w/ CT Transitional Care RN.
CM to follow.
--- NOTE | 2024-07-18 11:24 | W.DCSUMMARY ---
Discharge Summary
Discharge Data
Date of Admission: 07/15/24
Date of Discharge: 07/18/24
Total time spent discharging patient (in min): 35
-
Pending Results: No
Hospital Course
Primary care physician:
Dr. Ayde Vogt MD
Outpatient wastewater treatment plant operator:
Dr. Valente Chang MD
Inpatient consultants:
Inpatient [facility]
Procedures:
1. Heart Port radical mitral valve repair with 40 millimeter band annuloplasty and 4 pairs of [place]-Ancelmo cords
2. Ligation of left atrial appendage with 35 millimeter clip
Primary Diagnosis:
1. 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
Secondary Diagnoses:
1. 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
2. Preserved ejection fraction with chronic diastolic congestive heart failure / recent episode of acute on chronic diastolic heart failure requiring diuresis with lasix
3. Hypertension
4. Atrial Tachycardia and premature atrial contractions
5. Prolonged QT
6. Hiatal hernia
7. Asthma
8. Gastroesophageal Reflux Disease GERD
9. Guilbert syndrome
10. Former tobacco use, quit in 1999
11. Basal cell carcinoma
12. Post operative acute blood loss anemia
13. Post operative hypotension requiring Midodrine
14. Post operative pericarditis
HPI:
Patient is an extremely pleasant 53-year-old male who is seen as an outpatient in consultation secondary to heart failure. Patient had a recent admission to the hospital for heart failure requiring therapy with IV diuresis. Subsequently
he was found to have severe mitral valve insufficiency with symptomatic shortness of breath and fatigue. Patient was stabilized and discharged home. Given his young age he was offered mitral valve intervention with surgical repair. Patient also
had a history of atrial tachycardia, therefore, he was offered left atrial appendage ligation. He presented electively to [facility] on the date described above for the procedure described above.
Hospital course:
Patient tolerated the procedure well. Patient return to the cardiovascular intensive care unit intubated and in a stable condition. Patient required norepinephrine for blood pressure support. He was successfully extubated at 1500 on postoperative
day #0. He received 500 mL of lactated Ringer's for volume support. On postoperative day #1 patient continued norepinephrine due to labile blood pressures. He was given 1 250 bag of albumin as well as 1 250 mL bag of lactated ringer for
additional volume support. He was started on midodrine and Levophed was successfully weaned off. Morning EKG revealed pericarditis and the patient was started on colchicine 0.3 mg daily. He continued aspirin and amiodarone. On postoperative day
#2 the patient's arterial line, chest tube and pacing wires were removed without issues. His blood pressure was stable with systolic blood pressures in the 90s on midodrine. Beta-blockade therapy was continued to be held. On postoperative day #3
his right internal jugular Cordis was removed. Transthoracic echocardiogram was performed and reviewed by attending physician. He continued aspirin 81 mg daily, and the patient was medically cleared to be discharged to home.
Home medication changes:
Please pay attention to the following medication changes:
Take Acetaminophen 650 mg Q4H PRN-fever, mild pain control
Take Colchicine 0.3 mg daily x 1 month and then stop-post op pericarditis
Take Midodrine 10 mg TID-hypotesion, disscuss continuing at follow up with Cardiology, Dr. Chang
Take Oxycodone 5 mg Q6H TXN-[id number]-[id number] pain control
Discharge Plan
-
Patient Disposition: Home (Routine Discharge)
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
Preserved ejection fraction with chronic diastolic congestive heart failure / recent episode of acute on chronic diastolic heart failure requiring diuresis with lasix
Hypertension
Atrial Tachycardia and PACs
Prolonged QT
Hiatal hernia
Asthma
GERD
Guilbert syndrome
Former tobacco use, quit in 1999
Basal cell carcinoma
Condition: Good
Diet: Low Fat, Low Cholesterol and Low Sodium
Additional Diets: Cardiac diet
Activity: No strenuous activity
Driving Restrictions: Not until seen by your Dr
Bathing Restrictions: OK to Shower
Other Services: Cardiac Rehab
Specialty Instructions: Weigh Daily- Call MD for wt gain/loss 3 lbs overnight/5 lbs in 1 week
Activity Restrictions/Additional Instructions:
ACTIVITY:
-No strenuous activity: no heavy lifting, pushing, pulling anything over 15 pounds for one month
-continue to use stairs as tolerated
DRIVING RESTRICTIONS:
-No driving for one month or until approved by your surgeon
WOUND CARE:
-Shower daily. Use soap & water.
-No lotions, creams or powders on incision area.
DIET:
-continue a low fat/low cholesterol diet.
-IF you are diabetic, continue carb controlled diet.
CARDIAC REHAB:
-Please make appointment to start in 5-6 weeks with your local hospital program. (See Cardiac Rehabilitation Discharge Booklet).
SPECIALTY INSTRUCTIONS:
-Weigh yourself daily. Call your physician for any weight gain/loss of 3 lbs overnight or 5 lbs in one week.
-REPORT any clicking noise or uneven appearance of your sternum to your surgeon immediately.
-If you smoke, you are instructed to quit. The [place] smoking hotline phone number is [phone]
Referrals:
CT Transitional Care Nurse [Outside]
(
The Cardiothoracic Transitional Care Nurse will call you to set up a visit in 1-2 days.)
[facility] [Outside] - 08/19/24 7:30 am
(Cardiac Rehab Orientation and First Exercise appointment is on Monday August 19, 2024 at 7:30 AM. Please complete pre-admission surveys via email prior to arrival.
The Cardiac Rehab gym is located on the first floor of the [facility]ovascular [facility].)
Valente Chang MD [Active] - 09/08/24 2:00 pm
Ayde Vogt MD [Family Provider] -
Beto Forrest MD [Active] - 08/21/24 1:15 pm
Additional Discharge Medication Instructions: Please pay attention to the following medication changes:
Take Acetaminophen 650 mg Q4H PRN-fever, mild pain control
Take Colchicine 0.3 mg daily x 1 month and then stop-post op pericarditis
Take Midodrine 10 mg TID-hypotesion, disscuss continuing at follow up with Cardiology, Dr. Chang
Take Oxycodone 5 mg Q6H EIO-[id number] pain control
Prescriptions:
New
colchicine 0.6 mg Tablet
0.3 mg PO DAILY Qty: 15 0RF
Rx Instructions:
cut tab in 1/2, Take 1/2 tab daily for 30 days and then stop
acetaminophen 325 mg Tablet
650 mg PO Q4HPRN PRN (Reason: mild pain,headache,temp >101F ) Qty: 0 0RF
Rx Instructions:
Please purchase over the counter
oxycodone 5 mg Tablet
5 mg PO .Q6H PRN PRN (Reason: moderate-severe pain) Qty: 28 0RF
Rx Instructions:
Ongoing pain control. Attending physician Dr. Beto Forrest MD
midodrine 5 mg Tablet
10 mg PO TID@0800,1300,1800 Qty: 180 1RF
Rx Instructions:
Take until follow up w/ cardiology Dr. Chang, discuss continuing at f/u
Continued
aspirin 81 mg Tablet,Delayed Release (Dr/Ec)
81 mg PO HS
Pepcid Complete 10-800-165 mg Tablet,Chewable
1 tab PO BID
Refresh Optive 0.5-0.9 % Drops
1 drp BOTH EYES BID
multivitamin Tablet
1 tab PO DAILY
furosemide [Lasix] 20 mg tablet
20 mg PO DAILY Qty: 0 0RF
Rx Instructions:
Stop if you get dizzy or lightheaded
Discharge Orders:
Discharge Patient (As Directed); Ordered 07/18/24
Ordered By: Kaylin Montes
Care Plan Goals
Care Plan Goals:
Problem: Readiness for enhanced knowledge related to diagnosis and treatment plan
Goal: Understand your diagnosis and treatment plan needs, including medications if applicable.
Instructions: Know your diagnosis, underlying causes and treatment plan options, including medications if applicable. Consult with your health care team to learn about your diagnosis and treatment plan, including medications if applicable.
Discharge Date and Time
Print Language: NOR[place]GI[place]
--- NOTE | 2024-07-18 12:35 | W.PN.CARDCBS ---
Today's Communication / Plan
-
RECOMMENDATIONS:
-Clinically stable
-Okay for discharge with followup in our office in a few weeks
Impression / Plan
-
PCP: Dr. Vogt
Cardiology: Dr. Chang
Impression:
Severe MR s/p radical mitral valve repair via right minithoracotomy, MIRIAM clip 07/15/24
Chronic HFpEF
Palpitations
PACs and sinus tachycardia
Asthma
GERD
Former smoker
GEORGINA 09/07/21: Hyperdynamic LV systolic function EF 65 to 70%, normal regional wall motion, mildly dilated LA, mildly thickened mitral valve leaflets, prolapse of the anterior and posterior mitral valve leaflets present, moderate to severe MR,
significant prolapse of P2, P3 and A2 with mild pulmonary vein flow reversal, E wave velocity 78 cm/S, PISA ERO 0.3 cm/sq with regurgitant volume 35 mL
Echo 10/04/22: EF 50-55%, , mild conc LVH, prolapse of the posterior mitral leaflet was present, mod to sev MR, no MS, compared to the previous GEORGINA Aug 2021, there is no significant change.
Echo 05/25/23: EF 65%, normal RV size and function, bileaflet mitral valve prolapse, moderate to severe MR, vena contracta 0.6 cm, PISA calculated ERO 0.2 cm with regurgitant volume 19 mL, peak E wave velocity 90 cm/sq, there was systolic pulmonary
vein flow reversal, no MS, trace aortic regurgitation, trace TR with PAP 20-25 mmHg
ECHO 06/02/24: EF 60 to 65%, bileaflet mitral valve prolapse, moderate to severe MR, no MS
Plan:
-s/p radical mitral valve repair via right minithoracotomy, MIRIAM clip 07/15/24
-doing much better today
-reports breathing/pain much improved s/p CT removal. continue colchicine
-weaned off levo, on midodrine 10mg TID. wean as able. BPs appear stable. po hydration encouraged
-continue asa. hgb 12.1
-in SR on review of tele overnight. continue amiodarone. K/mag stable. BB on hold with hypotension
-continue post op care. continue IS
-was on 20mg po lasix prior to admission
-d/w nursing.
Progress Note - Emergency Medicine Medical Director
Subjective
Date of Service: July 18, 2024
Feels well. Some chest discomfort with deep inspiration.
Objective
Labs:
07/18/24 03:29
07/18/24 03:29
Labs
Hgb 10.6 g/dL (13.0-18.0) L 07/18/24 03:29
Hct 28.7 % (39.0-52.0) L 07/18/24 03:29
Plt Count 141 10^3/uL (130-400) 07/18/24 03:29
PT 19.2 Sec (11.4-14.6) H 07/15/24 11:54
INR 1.64 07/15/24 11:54
APTT 30.5 Sec (23.4-35.0) 07/15/24 11:54
Sodium 137 mmol/L (135-145) 07/18/24 03:29
Potassium 4.3 mmol/L (3.5-5.1) 07/18/24 03:29
BUN 16 mg/dl (9-20) 07/18/24 03:29
Creatinine 0.8 mg/dL (0.7-1.3) 07/18/24 03:29
Glucose 95 mg/dl (70-99) 07/18/24 03:29
Vital Signs and I&O:
Vital Signs
Temp Pulse Resp BP Pulse Ox
99.1 F 79 20 111/70 98
07/18/24 08:00 07/18/24 10:06 07/18/24 08:00 07/18/24 10:06 07/18/24 10:19
Vital Signs
Temp Pulse Resp BP Pulse Ox
99.1 F 79 20 111/70 98
07/18/24 08:00 07/18/24 10:06 07/18/24 08:00 07/18/24 10:06 07/18/24 10:19
Intake & Output
07/15/24 07/16/24 07/17/24 07/18/24
23:59 23:59 23:59 23:59
Intake Total 1178.4 / 1215.4 1319.1 / 1319.1 645.0 / 645.0
Output Total 735 / 750 650 / 650 1390 / 1390 2029 / 2029
Balance 443.4 / 465.4 669.1 / 669.1 -745.0 / -745.0 -2029 /
Physical Exam
Physical Exam
Gen: awake, alert, oriented. NAD
HEENT: NC/AT, sclera anicteric
Lungs : Clear anteriorly
CV: RRR no murmur no rub
Ext: no edema
[2024-07-18] MEDS: NSS IV (12:38)
--- NOTE | 2024-07-18 13:00 | PTCARENOTE ---
Patient discharged per CT protocol. RIJ cordis d/c'd, PIV d/c'd all dressings removed and pt showered without issues prior to discharged. Pt and present for discharge instructions, patient verbalized understanding. Medications reconciled. Pt
discharged via wheelchair staff transport to home with spouse.
== END 2024-07-18 13:09 | disposition home or self-care (01) | DRG 220 ==
LOC: CVICU 04:59
PROVIDERS: Anesthesiology; Clinical Nurse Specialist Acute Care; Physician Assistant Medical; ADMITTING PHYSICIAN Thoracic Surgery (Cardiothoracic Vascular Surgery); CONSULT PHYSICIAN Internal Medicine Critical Care Medicine; FAMILY PHYSICIAN Internal Medicine
PROC: 02UG0JZ Supplement Mitral Valve with Synthetic Substitute, Open Approach (ICD-10-PCS; 2024-07-15)
PROC: B24BZZ4 Ultrasonography of Heart with Aorta, Transesophageal (ICD-10-PCS; 2024-07-15)
PROC: 02L70CK Occlusion of Left Atrial Appendage with Extraluminal Device, Open Approach (ICD-10-PCS; 2024-07-15)
PROC: 5A1221Z Performance of Cardiac Output, Continuous (ICD-10-PCS; 2024-07-15)
DX: I34.1 Nonrheumatic mitral (valve) prolapse (principal); D62 Acute posthemorrhagic anemia; I47.19 Other supraventricular tachycardia; I50.32 Chronic diastolic (congestive) heart failure; I31.9 Disease of pericardium, unspecified; J98.11 Atelectasis; I11.0 Hypertensive heart disease with heart failure; I48.91 Unspecified atrial fibrillation; I34.0 Nonrheumatic mitral (valve) insufficiency; K44.9 Diaphragmatic hernia without obstruction or gangrene; J45.909 Unspecified asthma, uncomplicated; K21.9 Gastro-esophageal reflux disease without esophagitis; I49.1 Atrial premature depolarization; I95.81 Postprocedural hypotension; I25.10 Atherosclerotic heart disease of native coronary artery without angina pectoris; E80.4 Gilbert syndrome; R73.9 Hyperglycemia, unspecified; E86.1 Hypovolemia; E87.70 Fluid overload, unspecified; Z79.82 Long term (current) use of aspirin; Z79.899 Other long term (current) drug therapy; Z87.891 Personal history of nicotine dependence
CPT/HCPCS: 93308; 36415; 71045; 80048; 80053; 81003; 82248; 82330; 82565; 82805; 82810; 82947; 82962; 83036; 83735; 84132; 84302; 84520; 85014; 85018; 85025; 85027; 85049; 85610; 85730; 86850; 86900; 86901; 86920; 87070; 93005; 93312; 93320; 93321; 93325; 94002; J2916; P9045

== ENCOUNTER 2024-09-18 09:46 | Outpatient (RCR) | payer BC, SELFPAY | END 2024-09-18 23:59 | disposition home or self-care (01) | LOC: CRHB 09:46 | PROVIDERS: ATTENDING PHYSICIAN Internal Medicine Interventional Cardiology | DX: I50.32 Chronic diastolic (congestive) heart failure (principal); Z95.2 Presence of prosthetic heart valve; Z95.4 Presence of other heart-valve replacement | CPT/HCPCS: 93797; 93798 ==

== ENCOUNTER 2024-09-25 11:30 | Outpatient (RCR) | payer BC, SELFPAY | END 2024-09-25 23:59 | disposition home or self-care (01) | LOC: CRHB 11:30 | PROVIDERS: ATTENDING PHYSICIAN Internal Medicine Interventional Cardiology; FAMILY PHYSICIAN Internal Medicine | DX: Z95.4 Presence of other heart-valve replacement (principal) | CPT/HCPCS: 93797; 93798 ==

== ENCOUNTER 2025-07-24 18:22 | Emergency (ER) | payer BC, SELFPAY ==
[2025-07-24 18:31] VITALS: BP 140/87
[2025-07-24 18:49] LABS: Hematocrit 43.8 % (39.0-52.0); Hemoglobin 15.5 g/dL (13.0-18.0); Mean Corp Hgb Conc. 35.4 g/dL (33.0-37.0); Mean Corpuscular Volume 86.1 fL (80.0-94.0); Nucleated Red Blood Cells % 0 % (-); Platelet Count 278 10^3/uL (130-400); Red Cell Dist. Width 12.1 % (11.5-14.5)
[2025-07-24 19:11] LABS: Troponin I < 0.012 ng/ml
[2025-07-24 19:13] LABS: ALT (SGPT) 22 U/L (0-50); AST (SGOT) 23 U/L (17-59); Albumin 4.8 g/dl (3.5-5.0); Alkaline Phosphatase 67 U/L (38-126); Blood Urea Nitrogen 12 mg/dl (9-20); Calcium 9.9 mg/dl (8.4-10.2); Carbon Dioxide 27 mmol/L (22-30); Chloride 104 mmol/L (98-107); Glucose 94 mg/dl (70-99); Potassium 4.4 mmol/L (3.5-5.1); Sodium 138 mmol/L (135-145); Total Protein 7.2 g/dl (6.3-8.2); eGFR > 60.00
--- NOTE | 2025-07-24 19:47 | ED.GENMED ---
History of Present Illness
General
Chief Complaint: Chest Pain
Source: patient
Exam Limitations: none
Time Seen by Provider: 07/24/25 19:36
History of Present Illness
History of Present Illness:
54-year-old male with history of mitral valve repair on a baby aspirin presents with 2 to 3 days worth of left centered and left upper chest pain that is worse with breathing. No recent travel. Mitral valve repair was done over a year ago. No leg
swelling or calf pain. No cough or fever. No known injury. He has reflux and is on Pepcid for this as well. Initially seen at the urgent care and sent here for further evaluation.
Past History
Past History
ED Past Medical History: Other (mvp)
Social History
Tobacco: Non-smoker
Alcohol: Occasional
Drug: None
Personal:
Living: with family
Phy Exam
Physical Exam
Physical Exam:
General: Well-appearing male in no acute respiratory distress
HEENT: Normocephalic atraumatic
Heart: Slightly tachycardic no murmur
Lungs: Clear no wheeze
Extremities: No cyanosis or edema
Abdomen is soft nontender
Musculoskeletal exam: No reproducible tenderness to the chest wall
Scores
Heart Score for Chest Pain Patients
STEMI patient?: No
History: Slightly or Non-Suspicious
ECG: Normal
Age: >45 - <65 years
Risk Factors: No Risk Factors
Troponin: </= Normal Limit
Heart Score for Chest Pain Patients: 1
Heart Score Risk: 2.5% MACE over next 6 weeks
Course
Orders/Labs/Results
Orders:
Orders
07/24/25 18:23
Electrocardiogram (*1) Urgent
Reason for Study: Chest Pain
EKG- Treatment ONCE
07/24/25 18:40
CMP [Comprehensive Metabolic Panel] Urgent
Complete Blood Count/With Diff Urgent
Lipase Urgent
Comment: ADD ON
Troponin I Urgent
07/24/25 19:46
Add On- LAB Urgent
Tests Added?: lipase
CT Chest PE Study Urgent
Comment:
Reason For Exam: chest pain
Abnormal Lab Results
07/24/25
18:40
WBC 12.5 H 10^3/uL
(4.8-10.8)
Absolute Neuts (auto) 9.5 H 10^3/uL
(1.4-6.5)
Absolute Monos (auto) 0.9 H 10^3/uL
(0.1-0.6)
Neutrophils % 76.3 H %
(42.2-75.2)
Lymphocytes % 15.1 L %
(20.5-51.1)
Total Bilirubin 2.5 H mg/dl
(0.2-1.3)
07/24/25 18:40
07/24/25 18:40
Vital Signs
Initial and Last Documented VS:
Initial Vital Signs
Temp Pulse Resp BP Pulse Ox
97.8 F 106 18 140/87 100
07/24/25 18:31 07/24/25 18:31 07/24/25 18:31 07/24/25 18:31 07/24/25 18:31
Last Documented Vital Signs
Temp Pulse Resp BP Pulse Ox
97.8 F 88 12 105/78 100
07/24/25 18:31 07/24/25 20:45 07/24/25 20:45 07/24/25 20:00 07/24/25 21:45
MDM/Problems Addressed
Differential Diagnosis Includes:
Pleuritic chest pain. EKG shows sinus tachycardia with a rate of 103 with no ischemic changes. Differential could include PE versus chest wall discomfort versus pneumonia versus pleural effusion versus pancreatitis or reflux
Troponin is undetectable. Otherwise labs are within normal limits. There is no abdominal pain. The bilirubin is slightly elevated suspect possible Gilbert syndrome causing bilirubin.
*Pulse Oximetry
SaO2: 100
Oxygen Mode of Delivery: Room air
Patient hypoxic: no
*Critical Care Note
Total Time (30-74mins, 75-104mins- exclusive of procedures): Not Applicable
Update Note
Update Note:
CT of chest negative for PE. There is a trace to small pericardial effusion with surrounding inflammation to suggest pericarditis. Other than sinus tachycardia no other EKG changes noted. Troponin undetectable. Patient nontoxic. Vital signs are
stable otherwise. No indication for admission will recommend NSAIDs and close cardiology follow-up. Return precautions were given. Discussed with ED attending.
ED Attending Note
-
Portions of this chart may have been created with voice recognition software.� Occasional wrong word or��sound alike� substitutions may have occurred due to the inherent limitations of voice recognition software.
Discharge Plan
Departure
Patient Disposition: Home (Routine Discharge)
Date of Disposition: 07/24/25
Time of Disposition: 21:53
Patient with high blood pressure during this ER visit?: No
Discharge Problem:
Chest pain
Instructions: Chest Pain DCA Follow Up
Prescriptions:
No Action
aspirin 81 mg Tablet,Delayed Release (Dr/Ec)
81 mg PO HS
Pepcid Complete 10-800-165 mg Tablet,Chewable
1 tab PO BID
Refresh Optive 0.5-0.9 % Drops
1 drp BOTH EYES BID
multivitamin Tablet
1 tab PO DAILY
colchicine 0.6 mg Tablet
0.3 mg PO DAILY Qty: 15 0RF
Rx Instructions:
cut tab in 1/2, Take 1/2 tab daily for 30 days and then stop
acetaminophen 325 mg Tablet
650 mg PO Q4HPRN PRN (Reason: mild pain,headache,temp >101F ) Qty: 0 0RF
Rx Instructions:
Please purchase over the counter
oxycodone 5 mg Tablet
5 mg PO .Q6H PRN PRN (Reason: moderate-severe pain) Qty: 28 0RF
Rx Instructions:
Ongoing pain control. Attending physician Dr. Beto Forrest MD
midodrine 5 mg Tablet
10 mg PO TID@0800,1300,1800 Qty: 180 1RF
Rx Instructions:
Take until follow up w/ cardiology Dr. Chang, discuss continuing at f/u
furosemide [Lasix] 20 mg tablet
20 mg PO DAILY Qty: 0 0RF
Rx Instructions:
Stop if you get dizzy or lightheaded
Referrals:
Ayde Vogt MD [Family Provider, Internal Medicine]
Activity Restrictions/Additional Instructions:
Take ibuprofen 600 mg 3 times a day. Return here for fever shortness of breath worsening pain or other concerning finding. Follow-up with cardiology otherwise
Interventions
Interventions:
*Risk Screen - Suicide Last Done: 07/24/25 20:01
*Neglect/Abuse Screening Last Done: 07/24/25 20:01
*ED- Fall Risk Assessment Last Done: 07/24/25 20:01
*ED COVID-19 Vaccine History Last Done: 07/24/25 20:01
ED- Cardiac Assessment Last Done: 07/24/25 20:01
Discharge Date and Time
Print Language: [id number]
[2025-07-24 19:54] VITALS: BMI 24.6
[2025-07-24 20:00] VITALS: BP 105/78
[2025-07-24 20:24] LABS: Lipase 116 U/L (23-300)
== END 2025-07-24 22:35 | disposition home or self-care (01) ==
LOC: EMR 18:22
PROVIDERS: Physician Assistant Medical; EMERGENCY PHYSICIAN Emergency Medicine; FAMILY PHYSICIAN Internal Medicine
DX: R07.89 Other chest pain (principal); K21.9 Gastro-esophageal reflux disease without esophagitis
CPT/HCPCS: 99285; 71275; 80053; 83690; 84484; 85025; 93005; Q9967

== ENCOUNTER → 2025-09-21 15:50 | Outpatient (REF) | payer BC, SELFPAY | LOC: RCS 15:50 | PROVIDERS: ATTENDING PHYSICIAN Physician Assistant Medical; FAMILY PHYSICIAN Thoracic Surgery (Cardiothoracic Vascular Surgery) | DX: I30.0 Acute nonspecific idiopathic pericarditis (principal); Z98.890 Other specified postprocedural states; I34.1 Nonrheumatic mitral (valve) prolapse | CPT/HCPCS: 93306 ==